=== PATIENT | female | born 1975 | race Caucasian/White ===

== ENCOUNTER 2018-06-22 10:11 | Emergency (ER) | END 2018-06-22 13:09 | disposition home or self-care (01) ==

== ENCOUNTER 2018-12-27 12:48 | Outpatient (CLI) | payer MEDICAID ==
[~2018-12-27] VITALS: Ht 167.6 cm; Wt 80.5 kg
[~2018-12-27 12:48] MED LIST: ACET500C5 PO
[2018-12-27] MEDS ORDERED: PREN-93 PO (13:03)
[2018-12-27] MEDS ORDERED: FERR134T PO (13:03)
[2018-12-27 13:04] VITALS: BP 126/80; PULSE 118; RESP 18; Ht 167.6 cm; Wt 80.5 kg
[2018-12-27] MEDS ORDERED: ACETAMINOPHEN 500 MG TAB PO STA (13:26)
--- NOTE | 2018-12-27 16:10 | PN ---
Triage Information Date/Time Reason for visit: headache Weeks of Gestation 37 weeks /Para Diabetes: gestational Diabetes management: insulin controlled Hypertention: none Objective Vital Signs Date Temp Pulse Resp B/P (MAP) Pulse Ox O2 O2 Flow FiO2 Time Delivery Rate 12/27/18 98.7 118 18 126/80 Room Air 13:04 (95) Heart Rate: 120's Heart Rate Comments Reactive Results/Medications Result Diagram: 12/27/18 1407 12/27/18 1407 Results 24 hrs Laboratory Tests Test 12/27/18 14:07 12/27/18 14:08 White Blood Count 5.9 # Red Blood Count 4.33 Hemoglobin 11.8 L Hematocrit 36.2 L Mean Corpuscular Volume 83.6 # Mean Corpuscular Hemoglobin 27.3 #L Mean Corpuscular Hemoglobin Concent 32.6 Red Cell Distribution Width 14.2 Platelet Count 151 # Mean Platelet Volume 10.9 H Immature Granulocytes % 0.500 H Neutrophils % 83.4 H Lymphocytes % 10.3 L Monocytes % 5.5 Eosinophils % 0.0 Basophils % 0.3 Nucleated Red Blood Cells % 0.0 Immature Granulocytes # 0.030 Neutrophils # 4.9 Lymphocytes # 0.6 L Monocytes # 0.3 Eosinophils # 0.0 Basophils # 0.0 Nucleated Red Blood Cells # 0.0 Sodium Level 136 Potassium Level 4.3 Chloride Level 104 Carbon Dioxide Level 21 Anion Gap 11 Blood Urea Nitrogen 4 L Creatinine 0.46 Est Glomerular Filtrat Rate mL/min > 60 Glucose Level 96 Uric Acid 4.3 Calcium Level 9.1 Total Bilirubin 0.3 Direct Bilirubin 0.00 Indirect Bilirubin 0.3 Aspartate Amino Transf (AST/SGOT) 38 Alanine Aminotransferase (ALT/SGPT) 19 Alkaline Phosphatase 135 H Total Protein 7.8 Albumin 3.9 Globulin 3.90 H Albumin/Globulin Ratio 1.00 Urine Color YELLOW Urine Clarity SLIGHTLY CLOUDY A Urine pH 6.0 Urine Specific Wilson 1.017 Urine Ketones 2+ H Urine Nitrite NEGATIVE Urine Bilirubin NEGATIVE Urine Urobilinogen NEGATIVE Urine Leukocyte Esterase 3+ H Urine Microscopic RBC 4 Urine Microscopic WBC > 182 H Urine Squamous Epithelial Cells MANY A Urine Bacteria FEW A Urine Mucus FEW A Urine Hemoglobin NEGATIVE Urine Glucose NEGATIVE Urine Total Protein NEGATIVE Disposition: Discharge Assessment/Plan After taking Tylenol, patient states her headache resolved. Folllow up in [facility] clinic 12/28/2018. EDDI ULLOA MD Dec 27, 2018 16:10
--- NOTE | 2018-12-27 16:33 | TRIAGE ---
OB Triage Datetime Report Generated by CPN: 12/27/2018 16:32 Datetime: 12/27/2018 16:00 Labor Evaluation Frequency: IRREG Monitor Mode: External Duration (sec)2399: 40-80 Quality: Mild Pattern: Normal: <= 5 Contractions in 10 Minutes Resting Tone [place]: Relaxed Heart Rate FHR Baseline Rate: 135 Monitor Mode: External US Variability: Moderate 6-25 bpm Accelerations: 15X15 Decelerations: None Category: Category I Datetime: 12/27/2018 15:00 Labor Evaluation Frequency: IRREG Monitor Mode: External Duration (sec)2399: 40-70 Quality: Mild Pattern: Normal: <= 5 Contractions in 10 Minutes Resting Tone [place]: Relaxed Heart Rate FHR Baseline Rate: 140 Monitor Mode: External US Variability: Moderate 6-25 bpm Accelerations: 15X15 Decelerations: None Category: Category I Datetime: 12/27/2018 14:00 Labor Evaluation Frequency: IRREG Monitor Mode: External Duration (sec)2399: 50-80 Quality: Mild Pattern: Normal: <= 5 Contractions in 10 Minutes Resting Tone [place]: Relaxed Heart Rate FHR Baseline Rate: 140 Monitor Mode: External US Variability: Moderate 6-25 bpm Accelerations: 15X15 Decelerations: None Datetime: 12/27/2018 13:02 Assessment Type: Triage Maternal Assessment Level of Consciousness: Fully Conscious DTR's/Clonus: DTRs 2+; No Clonus Headache: Denies Blurred Vision: No Respiratory Effort: Unlabored; Regular Rhythm; Equal Expansion Breath Sounds, Left: Clear and Equal Breath Sounds, Right: Clear and Equal Nausea/Vomiting: Denies RUQ Epigastric Pain: Denies Lower Extremities Edema: None Degree: None Upper Extremities Edema: None Degree: None Facial Edema: None Fall Risk Assessment History of Falling: (0) No Secondary Diagnosis: (0) No Ambulatory Aid: (0) Bedrest/Nurse Assist IV Therapy: (0) No Gait: (0) Normal/Bedrest/Immobile Mental Status: (0) Oriented to Own Ability Fall Score: 0 Fall Risk Score Definition: No Risk: No action required Datetime: 12/27/2018 13:00 Time of Arrival: 12/27/2018 12:40 EGA: 37.2 Arrived By: Ambulatory Arrived From: Home Chief Complaint: h/a, back pain, N/V X2 Movement: Present Contractions: Denies/Absent Vaginal Bleeding: None Vaginal Discharge: Denies Recent Sexual Intercouse: Denies Patient Complaints: Back Pain; Nausea; Vomiting Time Provider Notified: 12/27/2018 13:22 Provider Notified: ARTEMIO Initial Plan: NST, tylenol, lab work
== END 2018-12-27 16:20 | disposition home or self-care (01) ==
LOC: L-D 12:48 → OBT 12:48
PROVIDERS: ATTEND Obstetrics & Gynecology
DX: O24.414 Gestational diabetes mellitus in pregnancy, insulin controlled (principal); Z3A.37 37 weeks gestation of pregnancy
CPT/HCPCS: 80053; 81001; 84560; 85025; Z7500; Z7610; G0463

== ENCOUNTER 2019-01-08 08:00 | Inpatient (IN) | payer MEDICAID ==
[~2019-01-08] VITALS: Ht 167.6 cm; Wt 80.4 kg
[~2019-01-08 08:00] MED LIST changes: +FERR134T PO; +PREN-93 PO
[2019-01-08] MEDS ORDERED: LACTATED RINGER'S 1,000 ML IV PRN (08:24)
[2019-01-08] MEDS ORDERED: BUTORPHANOL 2 MG INJ IV PRN (08:30)
[2019-01-08] MEDS ORDERED: BUTORPHANOL 1 MG INJ IV PRN (08:30)
[2019-01-08] MEDS ORDERED: CARBOPROST 250 MCG INJ IM PRN (08:30)
[2019-01-08] MEDS ORDERED: IBUPROFEN 600 MG TAB PO PRN (08:30)
[2019-01-08] MEDS ORDERED: OXYTOCIN 30 UNITS/LR 500 ML IV SCH ×3 (08:30→19:00)
[2019-01-08] MEDS ORDERED: LIDOCAINE 1% (MPF) 30 ML INJ INJ PRN (08:30)
[2019-01-08] MEDS ORDERED: METHYLERGONOVINE 0.2 MG INJ IM PRN (08:30)
[2019-01-08] MEDS ORDERED: MISOPROSTOL 200 MCG TAB PR PRN (08:30)
[2019-01-08] MEDS ORDERED: OXYTOCIN 30 UNITS/LR 500 ML IV PRN (08:30)
[2019-01-08 09:14] VITALS: Ht 167.6 cm; Wt 80.4 kg
[2019-01-08] MEDS: MISOPROSTOL 50 MCG CAPSULE PO SCH ×4 (10:33→21:00)
[2019-01-08] MEDS: LACTATED RINGER'S 1,000 ML IV SCH ×2 (10:34→20:41)
[2019-01-08] MEDS: DEXTROSE 5%-LR 1,000 ML IV SCH ×2 (11:21→19:13)
--- NOTE | 2019-01-08 19:34 | HP ---
Date/Time of Note Date/Time of Note DATE: 01/08/19 TIME: 19:32 OB - History Hx of Present Chief Complaint: induction of labor Estimated Due Date: Jan 15, 2019 : 1 Para: 0 Spontaneous : 0 Therapeutic : 0 Care: Good Care Ultrasounds: Normal mid trimester US Obstetrical Complications: None Medical Complications: Other (Type II DM) Past Family/Social History * Past Medical, Surgical, Family and Obstetric Histories reviewed from chart. GBS Status: Negative OB Admission Exam Physical Exam HEENT: WNL Heart: Rhythm Normal Lungs: Clear, Equal Abdomen: WNL Extremities: Normal Reflexes: Normal Cervical Dilatation: None Effacement: 50% Station: -1 Membranes: Intact Heart Rate: 120's Accelerations: Accelerations Present Decelerations: No Decelerations Varibility: Moderate Last 72 hourBlood Glucose Bedside Glucose - 72 Hours Test 01/08/19 11:10 01/08/19 13:47 01/08/19 16:12 01/08/19 18:01 Bedside 92 95 96 97 Glucose mg/dL (70-220) mg/dL (70-220) mg/dL (70-220) mg/dL (70-220) Last 72 hours Lab Results CBC & BMP 01/08/19 08:55 Liver Function Test 01/08/19 08:55 Alanine Aminotransferase (ALT/SGPT) 16 Albumin 3.8 Alkaline Phosphatase 150 H Aspartate Amino Transf (AST/SGOT) 23 Direct Bilirubin 0.00 Total Protein 7.7 OB Assessment/Plan Reason for admission: induction of labor Plan: Induction Induction Method: per Misoprostol Protocol EDDI ULLOA MD Jan 08, 2019 19:34
--- NOTE | 2019-01-08 22:22 | PREAC ---
Date/Time of Note Date/Time of Note DATE: 01/08/19 TIME: : Anesthesia Eval and Record Evaluation Time Pre-Procedure Interview DATE: 01/08/19 TIME: 22:19 Age 43 Sex female NPO: 8 hrs Preoperative diagnosis IUP Planned procedure L&D Epidural Past Medical History Past Medical History: Includes Cardio: HTN, Dyslipidemia Endo: Diabetes GI: Obesity Surgery & Anesthesia Issues No known issue Meds Anticoagulation: No Beta Marlon within 24 hr: No Reason Beta Marlon not given: Pt. not on B-Marlon Active Scripts Acetaminophen* (Tylophen*) 500 Mg Capsule, 1 CAP PO Q6H PRN for PAIN AND OR E LEVATED TEMP, #30 CAP Prov:ANTHONY MCCLURE PA-C 06/22/18 Reported Medications Ferrous Sulfate (Iron) 134 Mg Tablet, 134 MG PO DAILY, TAB 12/27/18 Vit No.124/Iron/FA ( Vitamin Tablet) 1 Each Tablet, 1 EACH PO DAILY, TAB 12/27/18 Current Medications Lactated Ringer's 1,000 ml @ 125 mls/hr Q8H IV Last administered on 01/08/19at 20:41; Admin Dose 125 MLS/HR; Start 01/08/19 at 08:24 Dextrose/Lactated Ringer's 1,000 ml @ 125 mls/hr Q8H IV Last administered on 01/08/19at 19:13; Admin Dose 125 MLS/HR; Start 01/08/19 at 08:24 Butorphanol Tartrate (Stadol) 1 mg Q2H PRN IV .PAIN; Start 01/08/19 at 08:30 Butorphanol Tartrate (Stadol) 2 mg Q2H PRN IV .PAIN; Start 01/08/19 at 08:30 Lidocaine (Xylocaine 1% (Mpf)) 30 ml ONCE PRN INJ .EPISIOTOMY; Start 01/08/19 at 08:30 Oxytocin/Lactated Ringer's 500 ml @ 500 mls/hr ONCE POST IV ; Start 01/08/19 at 08:30 Oxytocin/Lactated Ringer's 500 ml @ 125 mls/hr POST IV ; Start 01/08/19 at 08:30 Ibuprofen (Motrin) 600 mg ONCE PRN PO .PAIN 1-5; Start 01/08/19 at 08:30 Lactated Ringer's 1,000 ml @ 2,000 mls/hr Q30M PRN IV .ANESTHESIA; Start 01/08/19 at 08:24 Oxytocin/Lactated Ringer's 500 ml @ 0 mls/hr ONCE PRN IV .VAGINAL BLEEDING; Start 01/08/19 at 08:30 Methylergonovine Maleate (Methergine) 0.2 mg ONCE PRN IM .VAGINAL BLEEDING; Start 01/08/19 at 08:30 Carboprost Tromethamine (Hemabate) 250 mcg ONCE PRN IM .VAGINAL BLEEDING; Start 01/08/19 at 08:30 Misoprostol (Cytotec) 1,000 mcg ONCE PRN OK .VAGINAL BLEEDING; Start 01/08/19 at 08:30 Misoprostol (Cytotec 50 Mcg Capsule) 50 mcg Q4 PO Last administered on 01/08/19at 14:36; Admin Dose 50 MCG; Start 01/08/19 at 10:30 Oxytocin/Lactated Ringer's 500 ml @ 0 mls/hr FOR INDUCTION IV Last administered on 01/08/19at 20:40; Admin Dose 1 MLS/HR; Start 01/08/19 at 19:00 Meds reviewed: Yes Allergies Coded Allergies: No Known Allergy (Unverified , 12/27/18) Allergies Reviewed: Yes Labs/Studies Labs Reviewed: Reviewed by anesthesiologist Result Diagram: 01/08/19 0855 01/08/19 0855 Laboratory Tests 01/08/19 08:55 Blood Bank Test 01/08/19 08:55 Antibody Screen NEGATIVE Blood Type A NEGATIVE Rh Immune Globulin Candidate NO test: Positive Studies: ECG Pre-procedure Exam Last vitals BP:128/76, P:88, Spo2:100%, T:98,8 Airway: Adequate mouth opening, Adequate thyromental dist Mallampati: Mallampati II Teeth: Normal Lung: Normal Heart: Normal ASA Physical Status ASA physical status: 3 Emergency: None Planned Anesthetic Neuraxial: Epidural Planned Pain Management Epidural, Parenteral pain med Pre-operative Attestations Prior to commencing anesthesia and surgery, the patient was re-evaluated, there was verification of: *The patient's identity *The results of appropriate recent lab work and preoperative vital signs *The above evaluation not changing prior to induction *Anesthetic plan, risk benefits, alternative and complications discussed with patient/family; questions answered; patient/family understands, accepts and wishes to proceed. MALENA LORENZO MD Jan 08, 2019 22:22
[2019-01-08] MEDS ORDERED: NALOXONE (0.4 MG/ML) INJ IV PRN (22:30)
[2019-01-08] MEDS ORDERED: DIPHENHYDRAMINE 50 MG INJ IV PRN (22:30)
[2019-01-08] MEDS ORDERED: ONDANSETRON 4 MG INJ IV PRN (22:30)
[2019-01-09] MEDS: DEXTROSE 5%-LR 1,000 ML IV SCH (00:24)
[2019-01-09] MEDS: LACTATED RINGER'S 1,000 ML IV SCH ×5 (00:24→21:55)
[2019-01-09] MEDS: MISOPROSTOL 50 MCG CAPSULE PO SCH ×2 (01:00→05:00)
[2019-01-09] MEDS: FENTAnyl 2MCG/ML-ROPIV 0.2% 100 ML BAG EPI SCH ×3 (01:35→21:19)
--- NOTE | 2019-01-09 13:17 | PAC ---
Date/Time of Note Date/Time of Note DATE: 01/09/19 TIME: 13:16 Post-Anesthesia Notes Post-Anesthesia Note Activity: WNL Respiratory function: WNL Cardiovascular function: WNL Mental status: Baseline Pain reasonably controlled: Yes Hydration appropriate: Yes Nausea/Vomiting absent: Yes GRACE MORALES Jan 09, 2019 13:16
[2019-01-09] MEDS ORDERED: PIPER-TAZO 3.375 GM IV (PMX) 100 ML IVPB ONE (21:00)
--- NOTE | 2019-01-09 21:49 | LDN ---
Date/Time of Note Date/Time of Note DATE: 01/09/19 TIME: 21:43 Delivery Summary over intact perineum. Placenta delivered spontaneously. Uterine atony noted. Hemabate and Cytotec given Using large curette, sharp curettage performed. Bakri balloon placed and 470 ml of NS infused. Placenta Delivered: Spontaneously Meconium: none Episiotomy: No Laceration repair: Second degree perineal laceration repaired with 3-0 Vicryl and 3-0 chromic. Anesthesia type: Epidural Estimated blood loss: 1200 Sponge & Needle done & correct: Yes All needle counts correct: Yes Any foreign bodies felt in the: No Infant Delivery Information Sex Sex: male Apgars 1 Minute: 9 5 Minute: 9 Suctioning Nose & mouth suctioned at hilary: No Delee suction performed: No Umbilical Cord Umbilical cord with: 3 Vessels Cord presentations: no nuchal cord Cord Blood was obtained: Yes Mother & Baby Disposition Disposition Mom & Baby to Maternity; Good: Yes EDDI ULLOA MD Jan 09, 2019 21:49
[2019-01-09] MEDS ORDERED: WITCH HAZEL/GLYCERIN PAD PR PRN (23:30)
[2019-01-09] MEDS ORDERED: ACETAMINOPHEN 325 MG TAB PO PRN (23:30)
[2019-01-09] MEDS ORDERED: CARBOPROST 250 MCG INJ IM PRN (23:30)
[2019-01-09] MEDS ORDERED: OXYTOCIN 30 UNITS/LR 500 ML IV PRN (23:30)
[2019-01-09] MEDS ORDERED: BENZOCAINE 20% 56 ML SPRAY TOP PRN (23:30)
[2019-01-09] MEDS ORDERED: DIBUCAINE 1% 30 GM OINT TOP PRN (23:30)
[2019-01-09] MEDS ORDERED: MISOPROSTOL 200 MCG TAB PR PRN (23:30)
[2019-01-09] MEDS ORDERED: HYDROCODONE/APAP (5/325) TAB PO PRN (23:30)
[2019-01-10] MEDS ORDERED: PIPER-TAZO 3.375 GM IV (PMX) 100 ML IVPB SCH
[2019-01-10] MEDS: PIPER-TAZO 3.375 GM IV (PMX) 100 ML IVPB SCH ×3 (00:50→11:55)
[2019-01-10 03:56] VITALS: BP 97/54; PULSE 97; RESP 18
[2019-01-10 04:00] VITALS: BP 95/52; PULSE 96; RESP 18
--- NOTE | 2019-01-10 04:09 | PAC ---
Date/Time of Note Date/Time of Note DATE: 01/10/19 TIME: 04:09 Post-Anesthesia Notes Post-Anesthesia Note Last documented vital signs Vital Signs Date Temp Pulse Resp B/P (MAP) Pulse Ox O2 O2 Flow FiO2 Time Delivery Rate 01/10/19 96 18 95/52 (66) Room Air 04:00 01/10/19 98.3 98 03:56 Activity: WNL Respiratory function: WNL Cardiovascular function: WNL Mental status: Baseline Pain reasonably controlled: Yes Hydration appropriate: Yes Nausea/Vomiting absent: Yes GRACE MORALES Jan 10, 2019 04:09
[2019-01-10] MEDS: LACTATED RINGER'S 1,000 ML IV* SCH ×4 (04:40→23:08)
[2019-01-10] MEDS: IBUPROFEN 600 MG TAB PO SCH ×4 (05:42→18:13)
[2019-01-10] MEDS: FENTAnyl 2MCG/ML-ROPIV 0.2% 100 ML BAG EPI SCH (05:44)
[2019-01-10 07:30] VITALS: BP 97/55; PULSE 93; RESP 18
[2019-01-10] MEDS: SENNA/DOCUSATE NA (8.6MG/50MG) TAB PO SCH ×2 (09:00→21:35)
[2019-01-10 12:53] VITALS: BP 118/57; PULSE 101; RESP 19
--- NOTE | 2019-01-10 13:26 | QN ---
Documentation Comment No complaint Afebrile VSS Lochia moderate Hgb 7 Stable D/C Bakri Monitor lochia Fe supplement EDDI ULLOA MD Jan 10, 2019 13:26
[2019-01-10 15:15] VITALS: BP 125/61; PULSE 93; RESP 20
[2019-01-10 21:15] VITALS: BP 131/81; PULSE 78; RESP 18
[2019-01-10] MEDS: FERROUS SULFATE (EC) 325 MG TAB PO SCH (21:35)
[2019-01-11] MEDS: IBUPROFEN 600 MG TAB PO SCH ×5 (03:02→17:49)
[2019-01-11 03:15] VITALS: BP 136/80; PULSE 75; RESP 18
[2019-01-11] MEDS: LACTATED RINGER'S 1,000 ML IV* SCH ×3 (07:08→23:08)
[2019-01-11 08:10] VITALS: BP 136/74; PULSE 72; RESP 18
[2019-01-11] MEDS ORDERED: DIPHTH/TET/ACEL PERTUSS (ADULT) 0.5 ML VIAL IM* ONE (09:00)
--- NOTE | 2019-01-11 10:08 | QN ---
Documentation Comment No complaint Afebrile VSS Fundus firm Lochia scant Hgb 7.1 Stable Continue with Fe supplement Endocrinology consult EDDI ULLOA MD Jan 11, 2019 10:08
[2019-01-11] MEDS: FERROUS SULFATE (EC) 325 MG TAB PO SCH ×3 (12:09→21:24)
[2019-01-11] MEDS: SENNA/DOCUSATE NA (8.6MG/50MG) TAB PO SCH ×2 (12:09→21:25)
--- NOTE | 2019-01-11 14:25 | CONS ---
Assessment/Plan Assessment/Plan Problems: (1) Gestational diabetes mellitus Status: Chronic Comment: She is now . We will follow her closely but at this time I would not initiate medication therapy Qualifiers: Qualified Codes: O24.414 - Gestational diabetes mellitus in , insulin controlled (2) Insulin resistance syndrome Status: Chronic Comment: Counseled her carefully and the natural history of insulin resistance syndrome and is genetics. Specifically of talked to her about the utility of weight loss and exercise and protecting her interest for becoming a full diabetic. Follow her along she needs to be checked 2 months for sugar metabolism Consultation Date/Type/Reason Admit Date/Time Jan 08, 2019 at 08:15 Date of Consultation: Jan 11, 2019 Type of Consult Endocrinology Reason for Consultation Gestational diabetes with history of prediabetes pre- Requesting Provider: EDDI ULLOA MD Date/Time of Note DATE: 01/11/19 TIME: 14:21 Hx of Present Illness Charming 43-year-old female who reports that prior to she had been told of prediabetes but had not been placed on any specific medications. When she became she was placed on insulin therapy and maintained throughout with acceptable glycemic control. She is now after spontaneous vaginal delivery. No complications to the child Constitutional: no complaints Eyes: no complaints ENT: no complaints Respiratory: no complaints Cardiovascular: no complaints Gastrointestinal: no complaints Genitourinary: no complaints Musculoskeletal: no complaints Skin: no complaints Neurologic: no complaints Endocrine: no complaints Past Medical History Medical History: other (Insulin resistance syndrome with impaired glucose tolerance; gestational diabetes) Home Meds Active Scripts Acetaminophen* (Tylophen*) 500 Mg Capsule, 1 CAP PO Q6H PRN for PAIN AND OR ELEVATED TEMP, #30 CAP Prov:ANTHONY MCCLURE PA-C 06/22/18 Reported Medications Ferrous Sulfate (Iron) 134 Mg Tablet, 134 MG PO DAILY, TAB 12/27/18 Vit No.124/Iron/FA ( Vitamin Tablet) 1 Each Tablet, 1 EACH PO DAILY, TAB 12/27/18 Medications Current Medications Fentanyl/ Ropivacaine 100 ml EPIDURAL INFUSION EPI Last administered on at 05:44; Admin Dose 100 ML; Start 01/08/19 at 22:30 Lactated Ringer's 1,000 ml @ 125 mls/hr Q8H IV* Last administered on 01/10/19at 13:51; Admin Dose 125 MLS/HR; Start 01/09/19 at 23:08 Ibuprofen (Motrin) 600 mg Q6 PO Last administered on 01/11/19at 12:09; Admin Dose 600 MG; Start 01/10/19 at 00:00 Acetaminophen (Tylenol Tab) 650 mg Q4H PRN PO .PAIN 1-5; Start 01/09/19 at 23:30 Acetaminophen/ Hydrocodone Bitart ([place] (5/325)) 1 tab Q4H PRN PO .PAIN 1-5; Start 01/09/19 at 23:30 Senna/Docusate Sodium (Senokot-S) 1 tab BID PO Last administered on 01/11/19at 12:09; Admin Dose 1 TAB; Start 01/10/19 at 09:00 Witch [place]/ Glycerin (Tucks Pads) 1 pad BEDSIDE MEDICATION PRN TN .HEMORRHOID/EPISIOTOMY PAIN; Start 01/09/19 at 23:30 Benzocaine (Dermoplast Criders) 1 spray BEDSIDE MEDICATION PRN TOP .HEMMORHOID/EPISIOTOMY PAIN; Start 01/09/19 at 23:30 Dibucaine (Nupercainal) 1 applic BEDSIDE MEDICATION PRN TOP .HEMMORHOID/EPISIOTOMY; Start 01/09/19 at 23:30 Oxytocin/Lactated Ringer's 500 ml @ 0 mls/hr ONCE PRN IV .VAGINAL BLEEDING; Start 01/09/19 at 23:30 Carboprost Tromethamine (Hemabate) 250 mcg ONCE PRN IM .VAGINAL BLEEDING; Start 01/09/19 at 23:30 Misoprostol (Cytotec) 1,000 mcg ONCE PRN TN .VAGINAL BLEEDING; Start 01/09/19 at 23:30 Ferrous Sulfate (Ferrous Sulfate (Ec)) 325 mg TID PO Last administered on 01/11/19at 12:10; Admin Dose 325 MG; Start 01/10/19 at 21:00 Influenza Virus Vaccine Quadrival (Fluzone) 0.5 ml ONCE ONCE IM* ; Start 01/12/19 at 10:00; Stop 01/12/19 at 10:01 Allergies: Coded Allergies: No Known Allergy (Unverified , 12/27/18) Past Surgical History Past Surgical Hx: no surgical history Family History Significant Family History: diabetes Social History Alcohol Use: none Smoking Status: Never smoker Drug Use: none Exam/Review of Systems Exam Vitals Vital Signs Date Temp Pulse Resp B/P (MAP) Pulse Ox O2 O2 Flow FiO2 Time Delivery Rate 01/11/19 97.5 72 18 136/74 Room Air 08:10 (94) 01/10/19 98 03:56 Intake and Output 01/10/19 01/10/19 01/11/19 1515:00 23:00 07:00 IntakeIntake Total 4700 ml OutputOutput Total 800 ml 500 ml BalanceBalance -800 ml 4200 ml Constitutional: alert, oriented Head: normocephalic, atraumatic Neck: supple, non-tender Respiratory: clear to auscultation, normal air movement Cardiovascular: regular rate and rhythm, nl pulses Gastrointestinal: soft, nl liver, spleen, non-tender Results Result Diagram: 01/11/19 0809 01/08/19 0855 Results 24hrs Laboratory Tests Test 01/10/19 16:11 01/11/19 06:29 01/11/19 07:53 01/11/19 08:09 Bedside Glucose 143 128 Lab Scanned Report REFERENCE LAB White Blood Count 22.0 #H Red Blood Count 2.52 L Hemoglobin 7.1 L Hematocrit 20.6 L Mean Corpuscular 81.7 L Volume Mean Corpuscular 28.2 L Hemoglobin Mean Corpuscular 34.5 Hemoglobin Concent Red Cell 14.6 H Distribution Width Platelet Count 198 # Mean Platelet 11.4 H Volume Immature 3.900 H Granulocytes % Neutrophils % 86.0 H Segmented 85 H Neutrophils % (Manual) Band Neutrophils % 7 H (Manual) Lymphocytes % 6.8 L Lymphocytes % 6 L (Manual) Monocytes % 3.0 Monocytes % 2 (Manual) Eosinophils % 0.0 Basophils % 0.3 Nucleated Red 0.0 Blood Cells % Immature 0.860 H Granulocytes # Neutrophils # 18.9 H Neutrophils # 19.0 H (Manual) Band Neutrophils # 1.5 H Lymphocytes 1.3 (Manual) Lymphocytes # 1.5 Monocytes # 0.7 Monocytes # 0.4 (Manual) Eosinophils # 0.0 Basophils # 0.1 Nucleated Red 0.0 Blood Cells # Platelet Estimate NORMAL Giant Platelets 1 H Polychromasia 3+ Anisocytosis 3+ Microcytosis 3+ Test 01/11/19 12:00 Bedside Glucose 120 Medications Medication Current Medications Fentanyl/ Ropivacaine 100 ml EPIDURAL INFUSION EPI Last administered on 01/10/19at 05:44; Admin Dose 100 ML; Start 01/08/19 at 22:30 Lactated Ringer's 1,000 ml @ 125 mls/hr Q8H IV* Last administered on 01/10/19at 13:51; Admin Dose 125 MLS/HR; Start 01/09/19 at 23:08 Ibuprofen (Motrin) 600 mg Q6 PO Last administered on 01/11/19at 12:09; Admin Dose 600 MG; Start 01/10/19 at 00:00 Acetaminophen (Tylenol Tab) 650 mg Q4H PRN PO .PAIN 1-5; Start 01/09/19 at 23:30 Acetaminophen/ Hydrocodone Bitart ([place] (5/325)) 1 tab Q4H PRN PO .PAIN 1-5; Start 01/09/19 at 23:30 Senna/Docusate Sodium (Senokot-S) 1 tab BID PO Last administered on 01/11/19at 12:09; Admin Dose 1 TAB; Start 01/10/19 at 09:00 Witch [place]/ Glycerin (Tucks Pads) 1 pad BEDSIDE MEDICATION PRN [place] .HEMORRHOID/EPISIOTOMY PAIN; Start 01/09/19 at 23:30 Benzocaine (Dermoplast Criders) 1 spray BEDSIDE MEDICATION PRN TOP .HEMMORHOID/EPISIOTOMY PAIN; Start 01/09/19 at 23:30 Dibucaine (Nupercainal) 1 applic BEDSIDE MEDICATION PRN TOP .HEMMORHOID/EPISIOTOMY; Start 01/09/19 at 23:30 Oxytocin/Lactated Ringer's 500 ml @ 0 mls/hr ONCE PRN IV .VAGINAL BLEEDING; Start 01/09/19 at 23:30 Carboprost Tromethamine (Hemabate) 250 mcg ONCE PRN IM .VAGINAL BLEEDING; Start 01/09/19 at 23:30 Misoprostol (Cytotec) 1,000 mcg ONCE PRN TN .VAGINAL BLEEDING; Start 01/09/19 at 23:30 Ferrous Sulfate (Ferrous Sulfate (Ec)) 325 mg TID PO Last administered on 01/11/19at 12:10; Admin Dose 325 MG; Start 01/10/19 at 21:00 Influenza Virus Vaccine Quadrival (Fluzone) 0.5 ml ONCE ONCE IM* ; Start 01/12/19 at 10:00; Stop 01/12/19 at 10:01 PATRICK MCCONNELL MD Jan 11, 2019 14:25
[2019-01-11] MEDS ORDERED: GLUCOSE GEL 15 GRAM TUBE PO PRN ×2 (14:30)
[2019-01-11] MEDS ORDERED: DEXTROSE 50% 50 ML SYRINGE IV PRN ×2 (14:30)
[2019-01-11] MEDS ORDERED: GLUCAGON 1 MG INJ IM PRN (14:30)
[2019-01-11] MEDS ORDERED: GLUCOSE GEL 15 GRAM TUBE BUCCAL PRN (14:30)
[2019-01-11 20:00] VITALS: BP 128/74; PULSE 72; RESP 20
[2019-01-12] MEDS: IBUPROFEN 600 MG TAB PO SCH ×5 (00:14→23:09)
[2019-01-12] MEDS: ACCU-CHEK XX SCH ×6 (02:00→20:05)
[2019-01-12 03:20] VITALS: BP 126/71; PULSE 76; RESP 20
[2019-01-12 08:00] VITALS: BP 137/81; PULSE 65; RESP 20
[2019-01-12] MEDS: INSULIN ASPART [NOVOLOG] 3 ML PEN SC SCH ×4 (08:05→21:00)
--- NOTE | 2019-01-12 09:08 | CONS ---
Assessment/Plan Assessment/Plan Problems: (1) Insulin resistance syndrome Status: Chronic Comment: To need to monitor sugars. Anticipate that she may not need any treatment but if she does it would probably be with metformin 500 mg p.o. twice daily (2) Iron deficiency anemia Status: Chronic Comment: Is a significant iron deficiency anemia by blood testing. She is on oral iron however this will take some time to re-replete her levels. I am going to go ahead and give her IV iron to help speed the process. Dr. Ulloa will evaluate her for any other evaluation Qualifiers: Iron deficiency anemia type: unspecified iron deficiency Qualified Codes: D50.9 - Iron deficiency anemia, unspecified Consultation Date/Type/Reason Admit Date/Time Jan 08, 2019 at 08:15 Initial Consult Date 01/11/19 Type of Consult Endocrinology Reason for Consultation Insulin resistance syndrome with history of gestational diabetes; iron deficiency anemia with significant anemia Requesting Provider: EDDI ULLOA MD Date/Time of Note DATE: 01/12/19 TIME: 09:05 24 HR Interval Summary Free Text/Dictation Patient wants to know if she can go home Constitutional: no complaints Detailed Summary Endocrine: no complaints Exam/Review of Systems Exam Vitals Vital Signs Date Temp Pulse Resp B/P (MAP) Pulse Ox O2 O2 Flow FiO2 Time Delivery Rate 01/12/19 97.9 65 20 137/81 Room Air 08:00 (99) 01/10/19 98 03:56 Constitutional: alert, oriented Respiratory: clear to auscultation, normal air movement Cardiovascular: regular rate and rhythm, nl pulses Gastrointestinal: nl liver, spleen, non-tender, other (Small firm area in the pelvic area) Results Result Diagram: 01/12/19 0645 01/08/19 0855 Results 24hrs Laboratory Tests Test 01/11/19 12:00 01/11/19 13:30 01/11/19 15:23 01/11/19 17:47 Bedside Glucose 120 116 Urine Color YELLOW Urine Clarity SLIGHTLY CLOUDY A Urine pH 6.0 Urine Specific 1.012 [place] Urine Ketones NEGATIVE Urine Nitrite NEGATIVE Urine Bilirubin NEGATIVE Urine NEGATIVE Urobilinogen Urine Leukocyte 3+ H Esterase Urine Microscopic 66 H RBC Urine Microscopic 68 H WBC Urine Squamous FEW Epithelial Cells Urine Bacteria FEW A Urine Hemoglobin 3+ H Urine Glucose NEGATIVE Urine Total NEGATIVE Protein Iron Level 24 L Total Iron 318 Binding Capacity Percent Iron 8 L Saturation Ferritin 85.8 Thyroid 2.950 Stimulating Hormone (TSH) Hepatitis C NEGATIVE Antibody Test 01/11/19 22:06 01/12/19 06:45 01/12/19 08:08 Bedside Glucose 134 107 White Blood Count 15.3 #H Red Blood Count 2.18 L Hemoglobin 6.0 *L Hematocrit 17.9 L Mean Corpuscular 82.1 Volume Mean Corpuscular 27.5 L Hemoglobin Mean Corpuscular 33.5 Hemoglobin Concen t Red Cell 14.5 Distribution Width Platelet Count 177 Mean Platelet 11.1 H Volume Immature 2.400 H Granulocytes % Neutrophils % 83.9 H Lymphocytes % 9.1 L Monocytes % 4.2 Eosinophils % 0.2 Basophils % 0.2 Nucleated Red 0.0 Blood Cells % Immature 0.370 H Granulocytes # Neutrophils # 12.8 H Lymphocytes # 1.4 Monocytes # 0.6 Eosinophils # 0.0 Basophils # 0.0 Nucleated Red 0.0 Blood Cells # Medications Medication Current Medications Ibuprofen (Motrin) 600 mg Q6 PO Last administered on 01/12/19at 05:17; Admin Dose 600 MG; Start 01/10/19 at 00:00 Acetaminophen (Tylenol Tab) 650 mg Q4H PRN PO .PAIN 1-5; Start 01/09/19 at 23:30 Acetaminophen/ Hydrocodone Bitart ([place] (5/325)) 1 tab Q4H PRN PO .PAIN 1-5; Start 01/09/19 at 23:30 Senna/Docusate Sodium (Senokot-S) 1 tab BID PO Last administered on 01/11/19at 21:25; Admin Dose 1 TAB; Start 01/10/19 at 09:00 Witch Ryanne/ Glycerin (Tucks Pads) 1 pad BEDSIDE MEDICATION PRN [place] .HEMORRHOID/EPISIOTOMY PAIN; Start 01/09/19 at 23:30 Benzocaine (Dermoplast [place]) 1 spray BEDSIDE MEDICATION PRN [place] .HEMMORHOID/EPISIOTOMY PAIN; Start 01/09/19 at 23:30 Dibucaine (Nupercainal) 1 applic BEDSIDE MEDICATION PRN [place] .HEMMORHOID/EPISIOTOMY; Start 01/09/19 at 23:30 Oxytocin/Lactated Ringer's 500 ml @ 0 mls/hr ONCE PRN IV .VAGINAL BLEEDING; Start 01/09/19 at 23:30 Carboprost Tromethamine (Hemabate) 250 mcg ONCE PRN IM .VAGINAL BLEEDING; Start 01/09/19 at 23:30 Misoprostol (Cytotec) 1,000 mcg ONCE PRN [place] .VAGINAL BLEEDING; Start 01/09/19 at 23:30 Ferrous Sulfate (Ferrous Sulfate (Ec)) 325 mg TID PO Last administered on 01/11/19at 21:24; Admin Dose 325 MG; Start 01/10/19 at 21:00 Influenza Virus Vaccine Quadrival (Fluzone) 0.5 ml ONCE ONCE IM* ; Start 9 at 10:00; Stop 01/12/19 at 10:01 Diagnostic Test (Pha) (Accu-Chek) 1 ea 02 XX ; Start 01/12/19 at 02:00 Insulin Aspart (Novolog Insulin Pen) NOVOLOG *MILD* ALGORITHM WITH MEALS BEDTIME SC ; Start 01/11/19 at 18:05 Miscellaneous Information 1 ea NOTE XX ; Start 01/11/19 at 14:30 Glucose (Glutose) 22.5 gm Q15M PRN PO DECREASED GLUCOSE; Start 01/11/19 at 14:30 Dextrose (D50w Syringe) 25 ml Q15M PRN IV DECREASED GLUCOSE; Start 01/11/19 at 14:30 Dextrose (D50w Syringe) 50 ml Q15M PRN IV DECREASED GLUCOSE; Start 01/11/19 at 14:30 Glucagon (Glucagen) 1 mg Q15M PRN IM DECREASED GLUCOSE; Start 01/11/19 at 14:30 Glucose (Glutose) 15 gm Q15M PRN BUCCAL DECREASED GLUCOSE; Start 01/11/19 at 14:30 Ferric Sodium Gluconate Complex 125 mg/Sodium Chloride 100 ml @ 100 mls/hr ONCE ONCE IVPB ; Start 01/12/19 at 09:00; Stop 01/12/19 at 09:59; Status UNV Ferric Sodium Gluconate Complex 125 mg/Sodium Chloride 100 ml @ 100 mls/hr DAILY@1300 IVPB ; Start 01/12/19 at 13:00; Stop 01/14/19 at 13:59; Status UNV Diagnostic Test (Pha) (Accu-Chek) 1 ea 2 HOURS AFTER MEALS XX ; Start 01/12/19 at 10:05; Status UNV Diagnostic Test (Pha) (Accu-Chek) 1 ea AC MEALS XX ; Start 01/12/19 at 11:20; Status UNV PATRICK MCCONNELL MD Jan 12, 2019 09:08
[2019-01-12] MEDS: SENNA/DOCUSATE NA (8.6MG/50MG) TAB PO SCH ×2 (09:39→21:00)
[2019-01-12] MEDS: FERROUS SULFATE (EC) 325 MG TAB PO SCH ×3 (09:39→21:00)
[2019-01-12] MEDS ORDERED: SOD FERRIC GLUC COMPLX 125 MG in SOD CHLORIDE 0.9% 100 ML IVPB ONE (10:00)
[2019-01-12] MEDS: SOD FERRIC GLUC COMPLX 125 MG in SOD CHLORIDE 0.9% 100 ML IVPB SCH (13:29)
[2019-01-12 15:50] VITALS: BP 138/79; PULSE 77; RESP 20
--- NOTE | 2019-01-12 16:45 | QN ---
Documentation Comment No complaint Afebrile VSS Fundus firm lochia scant Hgb 6.2 Continue with IV iron Repeat CBC in AM EDDI ULLOA MD Jan 12, 2019 16:45
[2019-01-12 20:00] VITALS: BP 138/62; PULSE 76; RESP 20
[2019-01-12] MEDS: FOLIC ACID 1 MG TAB PO SCH (21:00)
[2019-01-13] VITALS (11 sets, daily range): BP systolic 104–192; BP diastolic 59–96; PULSE 72–85; RESP 18–20
[2019-01-13] MEDS: IBUPROFEN 600 MG TAB PO SCH ×3 (05:28→18:01)
[2019-01-13] MEDS: INSULIN ASPART [NOVOLOG] 3 ML PEN SC SCH ×4 (08:05→21:00)
--- NOTE | 2019-01-13 08:44 | CONS ---
Assessment/Plan Assessment/Plan Problems: (1) Insulin resistance syndrome Status: Chronic Comment: Blood sugars are stable at this time in a controlled setting with a controlled diet. Continue on observational basis without pharmaceutical intervention (2) Iron deficiency anemia Status: Chronic Comment: Continue with iron replacement. Discharge as per primary team Qualifiers: Iron deficiency anemia type: unspecified iron deficiency Qualified Codes: D50.9 - Iron deficiency anemia, unspecified (3) Chorioamnionitis, delivered, current hospitalization Status: Acute Comment: Cultures are positive. Management as per primary team Consultation Date/Type/Reason Admit Date/Time Jan 08, 2019 at 08:15 Initial Consult Date 01/11/19 Type of Consult Endocrinology Reason for Consultation Insulin resistance syndrome with gestational diabetes now ; severe iron deficiency anemia; chorioamnionitis with strep on cultures Requesting Provider: EDDI ULLOA MD Date/Time of Note DATE: 01/13/19 TIME: 08:43 24 HR Interval Summary Free Text/Dictation Patient reports she is feeling better. Constitutional: no complaints (Eyes fevers chills or sweats) Detailed Summary Endocrine: no complaints Exam/Review of Systems Exam Vitals Vital Signs Date Temp Pulse Resp B/P (MAP) Pulse Ox O2 O2 Flow FiO2 Time Delivery Rate 01/13/19 98.1 76 20 104/59 Room Air 04:50 (74) 01/10/19 98 03:56 Intake and Output 01/12/19 01/12/19 01/13/19 1515:00 23:00 07:00 IntakeIntake Total 200 ml BalanceBalance 200 ml Exam Ambulatory Constitutional: alert, oriented Respiratory: clear to auscultation, normal air movement Cardiovascular: regular rate and rhythm, nl pulses Results Result Diagram: 01/13/19 0529 01/13/19 0529 Results 24hrs Laboratory Tests Test 01/12/19 11:12 01/12/19 12:27 01/12/19 13:37 01/12/19 14:30 Bedside Glucose 100 97 111 White Blood Count 16.7 H Red Blood Count 2.25 L Hemoglobin 6.2 *L Hematocrit 18.4 L Mean Corpuscular 81.8 L Volume Mean Corpuscular 27.6 L Hemoglobin Mean Corpuscular 33.7 Hemoglobin Concent Red Cell 14.5 Distribution Width Platelet Count 215 # Mean Platelet Volume 10.8 H Immature 2.400 H Granulocytes % Neutrophils % 85.1 H Lymphocytes % 8.6 L Monocytes % 3.5 Eosinophils % 0.2 Basophils % 0.2 Nucleated Red Blood 0.1 H Cells % Immature 0.400 H Granulocytes # Neutrophils # 14.2 H Lymphocytes # 1.4 Monocytes # 0.6 Eosinophils # 0.0 Basophils # 0.0 Nucleated Red Blood 0.0 Cells # Test 01/12/19 17:52 01/12/19 21:40 01/13/19 05:29 Bedside Glucose 99 107 White Blood Count 12.9 #H Red Blood Count 2.15 L Hemoglobin 6.0 *L Hematocrit 17.9 L Mean Corpuscular 83.3 Volume Mean Corpuscular 27.9 L Hemoglobin Mean Corpuscular 33.5 Hemoglobin Concent Red Cell 14.2 Distribution Width Platelet Count 199 Mean Platelet Volume 10.9 H Immature 4.000 H Granulocytes % Neutrophils % Segmented 77 Neutrophils % (Manual) Band Neutrophils % 4 (Manual) Lymphocytes % Lymphocytes % 16 (Manual) Monocytes % Monocytes % (Manual) 2 Eosinophils % Basophils % Promyelocytes % 1 H (Manual) Nucleated Red Blood 2 H Cells % Immature 0.510 H Granulocytes # Neutrophils # Neutrophils # 10.0 H (Manual) Band Neutrophils # 0.5 Lymphocytes (Manual) 2.0 Lymphocytes # Monocytes # Monocytes # (Manual) 0.2 L Eosinophils # Basophils # Promyelocytes # 0.1 H Nucleated Red Blood Cells # Platelet Estimate NORMAL Polychromasia 3+ Poikilocytosis 1+ Anisocytosis 3+ Microcytosis 3+ Sodium Level 139 Potassium Level 3.2 L Chloride Level 109 Carbon Dioxide Level 26 Anion Gap 4 L Blood Urea Nitrogen 9 Creatinine 0.47 Est Glomerular > 60 Filtrat Rate mL/min Glucose Level 83 Calcium Level 8.2 L Medications Medication Current Medications Ibuprofen (Motrin) 600 mg Q6 PO Last administered on 01/13/19at 05:28; Admin Dose 600 MG; Start 01/10/19 at 00:00 Acetaminophen (Tylenol Tab) 650 mg Q4H PRN PO .PAIN 1-5; Start 01/09/19 at 23:30 Acetaminophen/ Hydrocodone Bitart ([place] (5/325)) 1 tab Q4H PRN PO .PAIN 1-5; Start 01/09/19 at 23:30 Senna/Docusate Sodium (Senokot-S) 1 tab BID PO Last administered on 01/12/19at 21:00; Admin Dose 1 TAB; Start 01/10/19 at 09:00 Witch Ryanne/ Glycerin (Tucks Pads) 1 pad BEDSIDE MEDICATION PRN [place] .HEMORRHOID/EPISIOTOMY PAIN; Start 01/09/19 at 23:30 Benzocaine (Dermoplast [place]) 1 spray BEDSIDE MEDICATION PRN TOP .HEMMORHOID/EPISIOTOMY PAIN; Start 01/09/19 at 23:30 Dibucaine (Nupercainal) 1 applic BEDSIDE MEDICATION PRN TOP .HE MMORHOID/EPISIOTOMY; Start 01/09/19 at 23:30 Oxytocin/Lactated Ringer's 500 ml @ 0 mls/hr ONCE PRN IV .VAGINAL BLEEDING; Start 01/09/19 at 23:30 Carboprost Tromethamine (Hemabate) 250 mcg ONCE PRN IM .VAGINAL BLEEDING; Start 01/09/19 at 23:30 Misoprostol (Cytotec) 1,000 mcg ONCE PRN [place] .VAGINAL BLEEDING; Start 01/09/19 at 23:30 Ferrous Sulfate (Ferrous Sulfate (Ec)) 325 mg TID PO Last administered on 01/12/19at 21:00; Admin Dose 325 MG; Start 01/10/19 at 21:00 Diagnostic Test (Pha) (Accu-Chek) 1 ea 02 XX ; Start 01/12/19 at 02:00 Insulin Aspart (Novolog Insulin Pen) NOVOLOG *MILD* ALGORITHM WITH MEALS BEDTIME SC ; Start 01/11/19 at 18:05 Miscellaneous Information 1 ea NOTE XX ; Start 01/11/19 at 14:30 Glucose (Glutose) 22.5 gm Q15M PRN PO DECREASED GLUCOSE; Start 01/11/19 at 14:30 Dextrose (D50w Syringe) 25 ml Q15M PRN IV DECREASED GLUCOSE; Start 01/11/19 at 14:30 Dextrose (D50w Syringe) 50 ml Q15M PRN IV DECREASED GLUCOSE; Start 01/11/19 at 14:30 Glucagon (Glucagen) 1 mg Q15M PRN IM DECREASED GLUCOSE; Start 01/11/19 at 14:30 Glucose (Glutose) 15 gm Q15M PRN BUCCAL DECREASED GLUCOSE; Start 01/11/19 at 14:30 Diagnostic Test (Pha) (Accu-Chek) 1 ea 2 HOURS AFTER MEALS XX Last administered on 01/12/19at 14:48; Admin Dose 1 EA; Start 01/12/19 at 10:05 Diagnostic Test (Pha) (Accu-Chek) 1 ea AC MEALS XX Last administered on 01/12/19at 17:59; Admin Dose 1 EA; Start 01/12/19 at 11:20 Ferric Sodium Gluconate Complex 125 mg/Sodium Chloride 110 ml @ 100 mls/hr DAILY@1300 IVPB Last administered on 01/12/19at 13:29; Admin Dose 100 MLS/HR; Start 01/12/19 at 13:00; Stop 01/14/19 at 13:59 Folic Acid (Folic Acid) 1 mg DAILY PO Last administered on 01/12/19at 21:00; Admin Dose 1 MG; Start 01/12/19 at 17:30 Ferric Sodium Gluconate Complex 125 mg/Sodium Chloride 100 ml @ 100 mls/hr ONCE ONCE IVPB ; Start 01/13/19 at 09:00; Stop 01/13/19 at 09:59; Status UNV Potassium Chloride (Klor-Con 20) 40 meq Q4H PO ; Start 01/13/19 at 09:00; Stop 01/13/19 at 16:00; Status UNV PATRICK MCCONNELL MD Jan 13, 2019 08:44
[2019-01-13] MEDS: ACCU-CHEK XX SCH ×7 (08:52→20:05)
[2019-01-13] MEDS: SENNA/DOCUSATE NA (8.6MG/50MG) TAB PO SCH ×2 (09:17→20:35)
[2019-01-13] MEDS: FOLIC ACID 1 MG TAB PO SCH (09:18)
[2019-01-13] MEDS: FERROUS SULFATE (EC) 325 MG TAB PO SCH ×3 (09:18→20:35)
[2019-01-13] MEDS ORDERED: SOD FERRIC GLUC COMPLX 125 MG in SOD CHLORIDE 0.9% 100 ML IVPB ONE (10:00)
[2019-01-13] MEDS: POTASSIUM CHLORIDE (SR) 20 MEQ TAB PO SCH ×2 (11:03→14:58)
[2019-01-13] MEDS: SOD FERRIC GLUC COMPLX 125 MG in SOD CHLORIDE 0.9% 100 ML IVPB SCH (13:00)
[2019-01-13] MEDS ORDERED: SOD FERRIC GLUC COMPLX 125 MG in SOD CHLORIDE 0.9% 100 ML IVPB SCH (13:00)
--- NOTE | 2019-01-13 17:45 | QN ---
Documentation Comment No complaint Afebrile VSS Fundus firm Hgb 6 Patient counseled reblood transfusion. Risks, benefits and alternatives were explained tot the p;atient who stated she understood and gave informed consent for blood transfusion Will transfuse one unit of RBC. EDDI ULLOA MD Jan 13, 2019 17:44
[2019-01-14] VITALS (24 sets, daily range): BP systolic 138–184; BP diastolic 67–92; PULSE 80–109; RESP 16–20
[2019-01-14] MEDS ORDERED: MAGNESIUM SULFATE 4 GM/100 ML 100 ML IV ONE (01:00)
[2019-01-14] MEDS: IBUPROFEN 600 MG TAB PO SCH ×5 (01:45→23:46)
[2019-01-14] MEDS: ACCU-CHEK XX SCH (01:48)
[2019-01-14] MEDS: LACTATED RINGER'S 1,000 ML IV SCH ×2 (01:49→12:50)
[2019-01-14] MEDS: MAGNESIUM SULFATE 20 GM/500 ML 500 ML IV SCH ×3 (02:14→22:36)
[2019-01-14] MEDS: hydrALAzine 20 MG INJ IV PRN ×3 (03:58→20:48)
[2019-01-14] MEDS: INSULIN ASPART [NOVOLOG] 3 ML PEN SC SCH ×4 (08:05→21:00)
[2019-01-14] MEDS: FERROUS SULFATE (EC) 325 MG TAB PO SCH ×3 (08:53→20:48)
[2019-01-14] MEDS: SENNA/DOCUSATE NA (8.6MG/50MG) TAB PO SCH ×2 (08:53→21:12)
--- NOTE | 2019-01-14 12:14 | QN ---
Documentation Comment Patient's BP increased to severe range requiring IV magnesium sulfate. Patient has no complaint Afebrile VSS BP improved Will continue with IV magnesium sulfate Hgb improving EDDI ULLOA MD Jan 14, 2019 12:14
[2019-01-14] MEDS: FOLIC ACID 1 MG TAB PO SCH (12:49)
[2019-01-14] MEDS: SOD FERRIC GLUC COMPLX 125 MG in SOD CHLORIDE 0.9% 100 ML IVPB SCH (13:00)
--- NOTE | 2019-01-14 13:39 | CONS ---
Assessment/Plan Assessment/Plan Problems: (1) Insulin resistance syndrome Status: Chronic Comment: Patient's sugars remain in good control under the present circumstances without pharmaceutical therapy. Continue close observation (2) Iron deficiency anemia Status: Chronic Comment: Patient's blood counts are coming up. As near as I can tell from the computer record she has not received a blood transfusion. Continue with aggressive replacement of IV iron Qualifiers: Iron deficiency anemia type: unspecified iron deficiency Qualified Codes: D50.9 - Iron deficiency anemia, unspecified (3) Chorioamnionitis, delivered, current hospitalization Status: Acute Comment: As per Dr. Ulloa. Please note the patient's blood pressure lois up. There is no other obvious evidence of eclampsia however careful observation. As per C[employer] WR[employer]PER and perinatology Consultation Date/Type/Reason Admit Date/Time Jan 08, 2019 at 08:15 Initial Consult Date 01/11/19 Type of Consult Endocrinology Reason for Consultation Insulin resistance syndrome with gestational diabetes mellitus type 2 treated with insulin; severe iron deficiency anemia Requesting Provider: EDDI ULLOA MD Date/Time of Note DATE: 01/14/19 TIME: 13:36 24 HR Interval Summary Free Text/Dictation Patient reports that she did not receive a blood transfusion. She reports that she is feeling a little bit better. Denies headache chest pain nausea vomiting other neurologic symptoms Constitutional: no complaints Detailed Summary Respiratory: no complaints Cardiovascular: no complaints Gastrointestinal: no complaints Neurologic: no complaints Endocrine: no complaints Exam/Review of Systems Exam Vitals Vital Signs Date Temp Pulse Resp B/P (MAP) Pulse Ox O2 O2 Flow FiO2 Time Delivery Rate 01/14/19 89 18 138/78 Room Air 11:00 (98) 01/14/19 98.1 08:00 Intake and Output 01/13/19 01/13/19 01/14/19 1515:00 23:00 07:00 IntakeIntake Total 100 ml 375 ml BalanceBalance 100 ml 375 ml Exam No change in examination Results Result Diagram: 01/14/19 0716 01/13/19 2235 Results 24hrs Laboratory Tests Test 01/13/19 15:06 01/13/19 18:06 01/13/19 20:25 01/13/19 21:53 Bedside Glucose 105 98 100 94 Test 01/13/19 22:35 01/13/19 22:55 01/14/19 07:16 01/14/19 08:37 White Blood Count 14.6 H 12.5 H Red Blood Count 2.31 L 2.50 L Hemoglobin 6.3 *L 6.8 *L Hematocrit 19.3 L 20.8 L Mean Corpuscular 83.5 83.2 Volume Mean Corpuscular 27.3 L 27.2 L Hemoglobin Mean Corpuscular 32.6 32.7 Hemoglobin Concent Red Cell 14.3 14.1 Distribution Width Platelet Count 215 250 Mean Platelet Volume 9.7 10.4 Immature 10.300 H 16.300 H Granulocytes % Neutrophils % 68.1 Lymphocytes % 13.8 L Monocytes % 6.5 Eosinophils % 0.8 Basophils % 0.5 Nucleated Red Blood 1.1 H 2 H Cells % Immature 1.500 H 2.040 H Granulocytes # Neutrophils # 10.0 H Lymphocytes # 2.0 Monocytes # 1.0 H Eosinophils # 0.1 Basophils # 0.1 Nucleated Red Blood 0.2 H Cells # Sodium Level 138 Potassium Level 3.7 Chloride Level 108 Carbon Dioxide Level 27 Anion Gap 3 L Blood Urea Nitrogen 10 Creatinine 0.47 Est Glomerular > 60 Filtrat Rate mL/min Glucose Level 90 Uric Acid 3.8 Calcium Level 8.5 Total Bilirubin 0.3 Direct Bilirubin 0.00 Indirect Bilirubin 0.3 Aspartate Amino 24 Transf (AST/SGOT) Alanine 25 Aminotransferase (AL T/SGPT) Alkaline Phosphatase 110 Total Protein 6.0 L Albumin 2.9 L Globulin 3.10 Albumin/Globulin 0.93 Ratio Urine Color RED Urine Clarity CLOUDY A Urine pH 7.0 Urine Specific 1.006 [place] Urine Ketones NEGATIVE Urine Nitrite NEGATIVE Urine Bilirubin NEGATIVE Urine Urobilinogen NEGATIVE Urine Leukocyte 3+ H Esterase Urine Microscopic > 182 H RBC Urine Microscopic > 182 H WBC Urine Squamous FEW Epithelial Cells Urine Bacteria FEW A Urine Hemoglobin 3+ H Urine Glucose NEGATIVE Urine Total Protein 2+ H Segmented 60 Neutrophils % (Manual) Band Neutrophils % 10 H (Manual) Lymphocytes % 7 L (Manual) Monocytes % (Manual) 12 H Metamyelocytes % 6 H (manual) Myelocytes % 4 H (Manual) Promyelocytes % 1 H (Manual) Neutrophils # 7.7 H (Manual) Band Neutrophils # 1.2 H Lymphocytes (Manual) 0.8 Monocytes # (Manual) 1.5 H Metamyelocytes # 0.7 H Myelocytes # 0.5 H Promyelocytes # 0.1 H Platelet Estimate NORMAL Polychromasia 3+ Anisocytosis 3+ Microcytosis 3+ Ovalocytes 1+ Magnesium Level 4.6 H Bedside Glucose 118 Test 01/14/19 11:09 01/14/19 12:35 Bedside Glucose 129 142 Medications Medication Current Medications Ibuprofen (Motrin) 600 mg Q6 PO Last administered on 01/14/19at 12:49; Admin Dose 600 MG; Start 01/10/19 at 00:00 Acetaminophen (Tylenol Tab) 650 mg Q4H PRN PO .PAIN 1-5; Start 01/09/19 at 23:30 Acetaminophen/ Hydrocodone Bitart ([place] (5/325)) 1 tab Q4H PRN PO .PAIN 1-5; Start 01/09/19 at 23:30 Senna/Docusate Sodium (Senokot-S) 1 tab BID PO Last administered on 01/14/19at 08:53; Admin Dose 1 TAB; Start 01/10/19 at 09:00 Witch Ryanne/ Glycerin (Tucks Pads) 1 pad BEDSIDE MEDICATION PRN [place] .HEMORRHOID/EPISIOTOMY PAIN; Start 01/09/19 at 23:30 Benzocaine (Dermoplast [place]) 1 spray BEDSIDE MEDICATION PRN TOP .HEMMOR HOID/EPISIOTOMY PAIN; Start 01/09/19 at 23:30 Dibucaine (Nupercainal) 1 applic BEDSIDE MEDICATION PRN TOP .HEMMORHOID/EPISIOTOMY; Start 01/09/19 at 23:30 Oxytocin/Lactated Ringer's 500 ml @ 0 mls/hr ONCE PRN IV .VAGINAL BLEEDING; Start 01/09/19 at 23:30 Carboprost Tromethamine (Hemabate) 250 mcg ONCE PRN IM .VAGINAL BLEEDING; Start 01/09/19 at 23:30 Misoprostol (Cytotec) 1,000 mcg ONCE PRN [place] .VAGINAL BLEEDING; Start 01/09/19 at 23:30 Ferrous Sulfate (Ferrous Sulfate (Ec)) 325 mg TID PO Last administered on 01/14/19at 12:49; Admin Dose 325 MG; Start 01/10/19 at 21:00 Diagnostic Test (Pha) (Accu-Chek) 1 ea 02 XX ; Start 01/12/19 at 02:00 Insulin Aspart (Novolog Insulin Pen) NOVOLOG *MILD* ALGORITHM WITH MEALS BEDTIME SC Last administered on 01/14/19at 13:03; Admin Dose 1 UNIT; Start 01/11/19 at 18:05 Miscellaneous Information 1 ea NOTE XX ; Start 01/11/19 at 14:30 Glucose (Glutose) 22.5 gm Q15M PRN PO DECREASED GLUCOSE; Start 01/11/19 at 14:30 Dextrose (D50w Syringe) 25 ml Q15M PRN IV DECREASED GLUCOSE; Start 01/11/19 at 14:30 Dextrose (D50w Syringe) 50 ml Q15M PRN IV DECREASED GLUCOSE; Start 01/11/19 at 14:30 Glucagon (Glucagen) 1 mg Q15M PRN IM DECREASED GLUCOSE; Start 01/11/19 at 14:30 Glucose (Glutose) 15 gm Q15M PRN BUCCAL DECREASED GLUCOSE; Start 01/11/19 at 14:30 Diagnostic Test (Pha) (Accu-Chek) 1 ea 2 HOURS AFTER MEALS XX Last administered on 01/13/19at 15:00; Admin Dose 1 EA; Start 01/12/19 at 10:05 Diagnostic Test (Pha) (Accu-Chek) 1 ea AC MEALS XX Last administered on 01/13/19at 18:07; Admin Dose 1 EA; Start 01/12/19 at 11:20 Ferric Sodium Gluconate Complex 125 mg/Sodium Chloride 110 ml @ 100 mls/hr DAILY@1300 IVPB Last administered on 01/12/19at 13:29; Admin Dose 100 MLS/HR; Start 01/12/19 at 13:00; Stop 01/14/19 at 13:59 Folic Acid (Folic Acid) 1 mg DAILY PO Last administered on 01/14/19at 12:49; Admin Dose 1 MG; Start 01/12/19 at 17:30 Magnesium Sulfate 500 ml @ 50 mls/hr Q10H IV Last administered on 01/14/19at 12:55; Admin Dose 50 MLS/HR; Start 01/14/19 at 00:42 Hydralazine HCl (Apresoline) 10 mg Q15M PRN IV PRN SBP >160 Last administered on 01/14/19at 03:58; Admin Dose 10 MG; Start 01/14/19 at 01:30 Lactated Ringer's 1,000 ml @ 75 mls/hr [id number] IV Last administered on 01/14/19at 12:50; Admin Dose 75 MLS/HR; Start 01/14/19 at 02:00 Ferric Sodium Gluconate Complex 125 mg/Sodium Chloride 100 ml @ 100 mls/hr ONCE ONCE IVPB ; Start 01/14/19 at 17:00; Stop 01/14/19 at 17:59; Status UNPATRICK KEATING MD Jan 14, 2019 13:39
[2019-01-14] MEDS ORDERED: SOD FERRIC GLUC COMPLX 125 MG in SOD CHLORIDE 0.9% 100 ML IVPB ONE (17:00)
[2019-01-15] VITALS (13 sets, daily range): BP systolic 134–171; BP diastolic 74–91; PULSE 85–124; RESP 17–20
[2019-01-15] MEDS: LACTATED RINGER'S 1,000 ML IV SCH (01:49)
[2019-01-15] MEDS: ACCU-CHEK XX SCH ×6 (02:00→20:05)
[2019-01-15] MEDS ORDERED: SOD FERRIC GLUC COMPLX 125 MG in SOD CHLORIDE 0.9% 100 ML IVPB ONE (06:33)
[2019-01-15] MEDS: IBUPROFEN 600 MG TAB PO SCH ×3 (06:34→16:01)
[2019-01-15] MEDS: INSULIN ASPART [NOVOLOG] 3 ML PEN SC SCH ×4 (08:05→21:00)
[2019-01-15] MEDS ORDERED: LABETALOL 200 MG TAB PO SCH (09:00)
[2019-01-15] MEDS: NIFEdipine (XL) 30 MG TAB PO SCH ×2 (09:29→21:00)
[2019-01-15] MEDS: SENNA/DOCUSATE NA (8.6MG/50MG) TAB PO SCH ×2 (09:29→21:46)
[2019-01-15] MEDS: FOLIC ACID 1 MG TAB PO SCH (09:29)
[2019-01-15] MEDS: FERROUS SULFATE (EC) 325 MG TAB PO SCH ×3 (09:29→21:46)
--- NOTE | 2019-01-15 10:18 | CONS ---
Assessment/Plan Assessment/Plan Problems: (1) Insulin resistance syndrome Status: Chronic Comment: Doing well on observational therapy. At this time no pharmaceutical intervention indicated. I will sign off the case at this time and follow the patient as an outpatient (2) Iron deficiency anemia Status: Chronic Comment: Intravenous iron held due to the usage of IV magnesium. Patient's blood counts are coming up nicely further management as per obstetrics gynecology Qualifiers: Iron deficiency anemia type: unspecified iron deficiency Qualified Codes: D50.9 - Iron deficiency anemia, unspecified (3) Chorioamnionitis, delivered, current hospitalization Status: Acute Comment: As per Dr. Ulloa Consultation Date/Type/Reason Admit Date/Time Jan 08, 2019 at 08:15 Initial Consult Date 01/11/19 Type of Consult Endocrinology Reason for Consultation Fluid resistance syndrome with gestational diabetes treated with insulin; severe iron deficiency anemia; hypertension Requesting Provider: EDDI ULLOA MD Date/Time of Note DATE: 01/15/19 TIME: 10:16 24 HR Interval Summary Constitutional: no complaints Detailed Summary Endocrine: no complaints Exam/Review of Systems Exam Vitals Vital Signs Date Temp Pulse Resp B/P (MAP) Pulse Ox O2 O2 Flow FiO2 Time Delivery Rate 01/15/19 90 17 147/82 06:10 (103) 01/15/19 98.7 04:10 01/14/19 Room Air 20:48 Intake and Output 01/14/19 01/14/19 01/15/19 1515:00 23:00 07:00 IntakeIntake Total 895 ml 625 ml 500 ml OutputOutput Total 1600 ml 1800 ml 1500 ml BalanceBalance -705 ml -1175 ml -1000 ml Exam No change in exam Results Result Diagram: 01/15/19 0910 01/13/19 2235 Results 24hrs Laboratory Tests Test 01/14/19 11:09 01/14/19 12:35 01/14/19 13:11 01/14/19 16:02 Bedside Glucose 129 142 124 Magnesium Level 4.7 H Test 01/14/19 18:00 01/14/19 18:38 01/14/19 21:05 01/15/19 00:36 Bedside Glucose 122 138 Magnesium Level 5.4 *H 5.4 *H Test 01/15/19 06:40 01/15/19 08:12 01/15/19 09:10 Lab Scanned Report REFERENCE LAB Bedside Glucose 116 White Blood Count 12.2 H Red Blood Count 2.72 L Hemoglobin 7.4 L Hematocrit 22.7 L Mean Corpuscular 83.5 Volume Mean Corpuscular 27.2 L Hemoglobin Mean Corpuscular 32.6 Hemoglobin Concent Red Cell Distribution 14.6 H Width Platelet Count 287 Mean Platelet Volume 10.2 Immature Granulocytes 15.800 H % Neutrophils % 62.4 Segmented Neutrophils 68 % (Manual) Band Neutrophils % 11 H (Manual) Lymphocytes % 13.4 L Lymphocytes % 12 L (Manual) Monocytes % 6.9 Monocytes % (Manual) 5 Eosinophils % 1.1 Eosinophils % 1 (Manual) Basophils % 0.4 Metamyelocytes % 2 H (manual) Myelocytes % (Manual) 1 H Nucleated Red Blood 1 H Cells % Immature Granulocytes 1.940 H # Neutrophils # 7.6 H Neutrophils # 8.5 H (Manual) Band Neutrophils # 1.3 H Lymphocytes (Manual) 1.4 Lymphocytes # 1.6 Monocytes # 0.9 Monocytes # (Manual) 0.6 Eosinophils # 0.1 Basophils # 0.1 Metamyelocytes # 0.2 H Myelocytes # 0.1 H Nucleated Red Blood 0.1 H Cells # Platelet Estimate NORMAL Polychromasia 3+ Anisocytosis 3+ Microcytosis 3+ Medications Medication Current Medications Ibuprofen (Motrin) 600 mg Q6 PO Last administered on 01/15/19at 06:34; Admin Dose 600 MG; Start 01/10/19 at 00:00 Acetaminophen (Tylenol Tab) 650 mg Q4H PRN PO .PAIN 1-5; Start 01/09/19 at 23:30 Acetaminophen/ Hydrocodone Bitart ([place] (5/325)) 1 tab Q4H PRN PO .PAIN 1-5 Last administered on 01/15/19at 04:50; Admin Dose 1 TAB; Start 01/09/19 at 23:30 Senna/Docusate Sodium (Senokot-S) 1 tab BID PO Last administered on 01/15/19at 09:29; Admin Dose 1 TAB; Start 01/10/19 at 09:00 Witch [place]/ Glycerin (Tucks Pads) 1 pad BEDSIDE MEDICATION PRN [place] .HEMORRHOID/EPISIOTOMY PAIN; Start 01/09/19 at 23:30 Benzocaine (Dermoplast [place]) 1 spray BEDSIDE MEDICATION PRN TOP .HEMMORHOID/EPISIOTOMY PAIN; Start 01/09/19 at 23:30 Dibucaine (Nupercainal) 1 applic BEDSIDE MEDICATION PRN TOP .HEMMORHOID/EPISIOTOMY; Start 01/09/19 at 23:30 Oxytocin/Lactated Ringer's 500 ml @ 0 mls/hr ONCE PRN IV .VAGINAL BLEEDING; Start 01/09/19 at 23:30 Carboprost Tromethamine (Hemabate) 250 mcg ONCE PRN IM .VAGINAL BLEEDING; Start 01/09/19 at 23:30 Misoprostol (Cytotec) 1,000 mcg ONCE PRN [place] .VAGINAL BLEEDING; Start 01/09/19 at 23:30 Ferrous Sulfate (Ferrous Sulfate (Ec)) 325 mg TID PO Last administered on 01/15/19at 09:29; Admin Dose 325 MG; Start 01/10/19 at 21:00 Diagnostic Test (Pha) (Accu-Chek) 1 ea 02 XX ; Start 01/12/19 at 02:00 Insulin Aspart (Novolog Insulin Pen) NOVOLOG *MILD* ALGORITHM WITH MEALS BEDTIME SC Last administered on 01/14/19at 13:03; Admin Dose 1 UNIT; Start 01/11/19 at 18:05 Miscellaneous Information 1 ea NOTE XX ; Start 01/11/19 at 14:30 Glucose (Glutose) 22.5 gm Q15M PRN PO DECREASED GLUCOSE; Start 01/11/19 at 14:30 Dextrose (D50w Syringe) 25 ml Q15M PRN IV DECREASED GLUCOSE; Start 01/11/19 at 14:30 Dextrose (D50w Syringe) 50 ml Q15M PRN IV DECREASED GLUCOSE; Start 01/11/19 at 14:30 Glucagon (Glucagen) 1 mg Q15M PRN IM DECREASED GLUCOSE; Start 01/11/19 at 14:30 Glucose (Glutose) 15 gm Q15M PRN BUCCAL DECREASED GLUCOSE; Start 01/11/19 at 14:30 Diagnostic Test (Pha) (Accu-Chek) 1 ea 2 HOURS AFTER MEALS XX Last administered on 01/13/19at 15:00; Admin Dose 1 EA; Start 01/12/19 at 10:05 Diagnostic Test (Pha) (Accu-Chek) 1 ea AC MEALS XX Last administered on 01/13/19 18:07; Admin Dose 1 EA; Start 01/12/19 at 11:20 Folic Acid (Folic Acid) 1 mg DAILY PO Last administered on 01/15/19 09:29; Admin Dose 1 MG; Start 01/12/19 at 17:30 Magnesium Sulfate 500 ml @ 50 mls/hr Q10H IV Last administered on 01/14/19 22:36; Admin Dose 50 MLS/HR; Start 01/14/19 at 00:42 Hydralazine HCl (Apresoline) 10 mg Q15M PRN IV PRN SBP >160 Last administered on 01/14/19 20:48; Admin Dose 10 MG; Start 01/14/19 at 01:30 Lactated Ringer's 1,000 ml @ 75 mls/hr [id number] IV Last administered on 01/15/19 01:49; Admin Dose 75 MLS/HR; Start 01/14/19 at 02:00 Nifedipine (Procardia Xl) 30 mg BID PO Last administered on 01/15/19 09:29; Admin Dose 30 MG; Start 01/15/19 at 09:00 PATRICK MCCONNELL MD Jan 15, 2019 10:17
[2019-01-15] MEDS ORDERED: NIFEdipine (XL) 30 MG TAB PO ONE (19:30)
[2019-01-15] MEDS ORDERED: NIFEdipine 10 MG CAP PO ONE (21:30)
[2019-01-16] MEDS: IBUPROFEN 600 MG TAB PO SCH ×5 (01:21→23:44)
[2019-01-16] MEDS: ACCU-CHEK XX SCH ×7 (02:00→20:05)
[2019-01-16 04:00] VITALS: BP 155/90; PULSE 113; RESP 20
[2019-01-16 08:00] VITALS: BP 161/94; PULSE 101; RESP 18
[2019-01-16] MEDS: INSULIN ASPART [NOVOLOG] 3 ML PEN SC SCH ×4 (08:05→21:00)
[2019-01-16] MEDS: FERROUS SULFATE (EC) 325 MG TAB PO SCH ×3 (08:19→20:36)
[2019-01-16] MEDS: FOLIC ACID 1 MG TAB PO SCH (08:19)
[2019-01-16] MEDS: SENNA/DOCUSATE NA (8.6MG/50MG) TAB PO SCH ×2 (08:20→20:36)
[2019-01-16 09:00] VITALS: BP 151/91; PULSE 89; RESP 17
[2019-01-16] MEDS: NIFEdipine (XL) 30 MG TAB PO SCH ×2 (09:00→20:36)
[2019-01-16] MEDS ORDERED: NIFEdipine (XL) 60 MG TAB PO ONE (09:00)
[2019-01-16 11:32] VITALS: BP 144/86; PULSE 93; RESP 18
--- NOTE | 2019-01-16 14:32 | PN ---
Date/Time of Note Date/Time of Note DATE: 01/16/19 TIME: 14:25 OB Subjective Subjective Subjective Late entry note. Patient seen on 01/15/2019 PPD# 6 Patient is doing well. She denies nausea, vomiting, shortness of breath, chest pain, headache. She has been ambulating without difficulty, tolerating regular diet. Pain is well controlled on current medications OB Objective Objective Objective General: AAO X 3, comfortable, NAD, appropriate mood and affect. ABD: +BS. Soft, non-tender. Uterus 2 cm below umbilicus Flank: No CVA tenderness (B/L) LE: Mild edema. No clubbing, cyanosis, thigh or calf tenderness (B/L). Homans 'sign is negative OB Assessment/Plan Other plan: 43 years old 1 para 1001 with preeclampsia s/p normal vaginal delivery. PPD#6. She again had elevated blood pressure yesterday which required magnesium sulfate. Her blood pressure currently are not in severe range. She denies symptom of severe features. She is currently on Procardia 30 mg XL. Observe her closely. Baby is doing well, at bed side. She is bonding well. Continue care Addendum: Patient seen at 20:00 again. Blood pressure pressure was 161/92. Procardia 20 mg p.o. given. Follow her closely. I discussed with patient will increase Procardia 30 mg to 60 mg XL tomorrow morning and observe her closely. Patient would like to be discharged home tomorrow. If blood pressure are stable on Procardia 60 mg XL, she may discharge home. I did recommend, buy blood pressure machine. The nurse will educate her how to check her blood pressure. I anticipate she need Procardia 60 mg daily in the next few days and then Procardia decrease to 30 mg XL if needed. She expressed understanding, all of her questions answered. ESTEE HERNANDEZ Jan 16, 2019 14:32
[2019-01-16 16:00] VITALS: BP 156/80; PULSE 88; RESP 18
--- NOTE | 2019-01-16 16:30 | DS ---
Date/Time of Note Date/Time of Note DATE: 01/16/19 TIME: 16:21 Obstetrical Discharge Record Final Diagnosis Final Diagnosis: Term delivered Other Final Diagnosis 43 years old 1 para 1001 with preeclampsia s/p normal vaginal delivery. PPD#7. course was unremarkable except for elevated blood pressure which required treatment with magnesium sulfate on 01/14/2019. She currently denies symptom of severe features of preeclampsia. She was on Procardia 30 mg XL yesterday which increased to 60 mg XL daily since this morning due to uncontrolled blood pressure. Patient's brought blood pressure machine pressure or recommendation. The nurse educate her and her how to check her blood pressure. She discharged home on Procardia 60 mg XL daily. She will check her blood pressure 3 times daily and will have follow-up with her primary OB in 3-4 days. Again sign and symptom of preeclampsia with severe features discussed in detail with patient. She expressed understanding. All of her questions answered. I strongly recommend come to emergency department with any above symptoms or any concern. - Baby is doing well, at bed side. She is bonding well - Contraception methods with R/B/A/FR discussed - Continue care - Discharge home - Rx and instruction given - Follow up in 3 days and 6 weeks with primary OB Condition on Discharge Physical Assessment Last Vitals: VS - Last 72 Hours, by Label Date Temp Pulse Resp B/P (MAP) Pulse Ox O2 O2 Flow FiO2 Time Delivery Rate 01/16/19 93 18 144/86 Room Air 11:32 (105) 01/16/19 89 17 151/91 Room Air 09:00 (111) 01/16/19 97.6 101 18 161/94 Room Air 08:00 (116) 01/16/19 97.4 113 20 155/90 Room Air 04:00 (111) 01/15/19 99.2 115 19 145/85 Room Air 23:00 (105) 01/15/19 99.4 124 20 157/88 Room Air 20:30 (111) 01/15/19 102 171/91 18:39 (117) 01/15/19 98.9 107 20 163/85 Room Air 16:00 (111) 01/15/19 97.6 102 18 154/81 Room Air 12:00 (105) 01/15/19 98.4 90 20 159/91 Room Air 08:00 (113) 01/15/19 90 17 147/82 06:10 (103) 01/15/19 97 17 157/87 05:10 (110) 01/15/19 98.7 95 17 146/74 04:10 (98) 01/15/19 87 18 155/78 03:10 (103) 01/15/19 85 18 152/77 02:10 (102) 01/15/19 89 17 134/82 01:10 (99) 01/15/19 92 18 148/77 00:10 (100) 01/14/19 95 18 157/84 23:10 (108) 01/14/19 93 19 142/80 22:10 (100) 01/14/19 94 18 152/82 21:10 (105) 01/14/19 98.9 104 18 167/89 Room Air 20:48 (115) 01/14/19 97.9 97 18 155/86 Room Air 18:00 (109) 01/14/19 94 18 151/85 Room Air 17:00 (107) 01/14/19 94 18 158/68 Room Air 16:00 (98) 01/14/19 97 155/92 15:15 (113) 01/14/19 102 182/91 14:56 (121) 01/14/19 96 150/80 Room Air 13:00 (103) 01/14/19 18 145/80 Room Air 12:00 (101) 01/14/19 89 18 138/78 Room Air 11:00 (98) 01/14/19 89 18 140/78 Room Air 10:00 (98) 01/14/19 99 18 150/78 Room Air 09:00 (102) 01/14/19 98.1 107 18 150/85 Room Air 08:00 (106) 01/14/19 99 18 153/79 Room Air 06:15 (103) 01/14/19 107 20 159/77 Room Air 05:15 (104) 01/14/19 107 16 142/71 Room Air 04:15 (94) 01/14/19 109 20 138/67 Room Air 04:10 (90) 01/14/19 97.8 98 18 140/75 Room Air 04:06 (96) 01/14/19 82 20 184/82 Room Air 04:00 (116) 01/14/19 93 20 173/91 Room Air 03:00 (118) 01/14/19 80 18 182/86 Room Air 02:00 (118) 01/14/19 98.2 96 20 175/87 Room Air 00:00 (116) 01/13/19 80 18 177/87 Room Air 23:30 (117) 01/13/19 78 20 174/87 Room Air 23:00 (116) 01/13/19 80 18 170/83 Room Air 22:45 (112) 01/13/19 73 18 181/93 Room Air 22:30 (122) 01/13/19 80 20 192/96 Room Air 22:15 (128) 01/13/19 82 18 186/91 Room Air 22:00 (122) 01/13/19 80 20 160/87 21:00 (111) 01/13/19 97.9 85 20 155/80 Room Air 20:00 (105) Vital Signs Date Temp Pulse Resp B/P (MAP) Pulse Ox O2 O2 Flow FiO2 Time Delivery Rate 01/16/19 93 18 144/86 Room Air 11:32 (105) 01/16/19 97.6 08:00 Voiding: Yes Bowel Movement: Yes Breast: Soft, non-tender Fundus: Firm Calf Tenderness: No Patient Condition: Stable ESTEE HERNANDEZ Jan 16, 2019 16:30
[2019-01-16 20:45] VITALS: BP 157/94; PULSE 111; RESP 18
--- NOTE | 2019-01-16 21:00 | QN ---
Documentation Comment 43 years old 1 para 1001 with preeclampsia s/p normal vaginal delivery. PPD#7. course was unremarkable except for elevated blood pressure which required treatment with magnesium sulfate on 01/14/2019. She currently denies symptom of severe features of preeclampsia. She was on Procardia 30 mg XL yesterday which increased to 60 mg XL daily since this morning due to uncontrolled blood pressure. Patient discussed with Dr. Jones who kindly accepted to visit and follow the patient. ESTEE HERNANDEZ Jan 16, 2019 21:00
[2019-01-16] MEDS ORDERED: METOPROLOL (XL) 25 MG TAB PO ONE (21:30)
[2019-01-17] MEDS: ACCU-CHEK XX SCH ×5 (02:00→13:50)
[2019-01-17 06:00] VITALS: BP 158/93; PULSE 110; RESP 19
[2019-01-17] MEDS: IBUPROFEN 600 MG TAB PO SCH ×3 (06:00→18:00)
[2019-01-17] MEDS: INSULIN ASPART [NOVOLOG] 3 ML PEN SC SCH ×2 (08:05→11:50)
[2019-01-17 08:30] VITALS: BP 159/86; PULSE 103; RESP 18
[2019-01-17] MEDS: FERROUS SULFATE (EC) 325 MG TAB PO SCH ×2 (08:50→14:19)
[2019-01-17] MEDS: SENNA/DOCUSATE NA (8.6MG/50MG) TAB PO SCH (08:50)
[2019-01-17] MEDS: NIFEdipine (XL) 30 MG TAB PO SCH (08:51)
[2019-01-17] MEDS ORDERED: METOPROLOL (XL) 25 MG TAB PO SCH (09:00)
[2019-01-17] MEDS: FOLIC ACID 1 MG TAB PO SCH (09:35)
[2019-01-17 10:05] VITALS: BP 140/80; PULSE 95; RESP 18
[2019-01-17] MEDS ORDERED: POTASSIUM CHLORIDE (SR) 20 MEQ TAB PO STA (12:39)
--- NOTE | 2019-01-17 12:46 | CONS ---
Assessment/Plan Assessment/Plan Problems: (1) Pre-eclampsia Status: Acute Comment: Patient is now Qualifiers: Trimester: third trimester Qualified Codes: O14.93 - Unspecified pre- eclampsia, third trimester (2) Pre-eclampsia in period Status: Acute Comment: Patient is day 6 and had rise in blood pressure. Blood pressure medications have been added and the patient is stable. Home blood pressure kit. Obstetrics and gynecology feels comfortable with the patient being discharged. Please note perinatology signed off the case at (3) Insulin resistance syndrome Status: Chronic Comment: Stable on no medication (4) Iron deficiency anemia Status: Chronic Comment: Resolving nicely with supplementation Qualifiers: Iron deficiency anemia type: unspecified iron deficiency Qualified Codes: D50.9 - Iron deficiency anemia, unspecified Consultation Date/Type/Reason Admit Date/Time Jan 08, 2019 at 08:15 Initial Consult Date 01/11/19 Type of Consult Endocrinology Reason for Consultation Insulin resistance syndrome with gestational diabetes; iron deficiency anemia; (preeclampsia and eclampsia with hypertension as per obstetrics gynecology notes) Requesting Provider: EDDI ULLOA MD Date/Time of Note DATE: 01/17/19 TIME: 12:42 24 HR Interval Summary Free Text/Dictation Patient reports she is anxious to go home. No headaches no nausea no vomiting negative neurologic review of systems Constitutional: no complaints Detailed Summary Respiratory: no complaints Cardiovascular: no complaints Gastrointestinal: no complaints Genitourinary: no complaints Exam/Review of Systems Exam Vitals Vital Signs Date Temp Pulse Resp B/P (MAP) Pulse Ox O2 O2 Flow FiO2 Time Delivery Rate 01/17/19 98.4 103 18 159/86 Room Air 08:30 (110) Constitutional: alert, oriented Neck: supple, non-tender Respiratory: clear to auscultation, normal air movement Cardiovascular: regular rate and rhythm, nl pulses Gastrointestinal: soft, nl liver, spleen, non-tender Results Result Diagram: 01/17/19 0615 01/17/19 0615 Results 24hrs Laboratory Tests Test 01/16/19 18:12 01/17/19 05:32 01/17/19 06:00 01/17/19 06:15 Bedside Glucose 106 101 Urine Color YELLOW Urine Clarity CLOUDY A Urine pH 7.0 Urine Specific [place] 1.009 Urine Ketones 1+ H Urine Nitrite NEGATIVE Urine Bilirubin NEGATIVE Urine Urobilinogen NEGATIVE Urine Leukocyte Esterase 3+ H Urine Microscopic RBC 142 H Urine Microscopic WBC > 182 H Urine Squamous FEW Epithelial Cells Urine Hemoglobin 3+ H Urine Glucose NEGATIVE Urine Total Protein 1+ H White Blood Count 11.4 H Red Blood Count 2.95 L Hemoglobin 8.1 L Hematocrit 24.7 L Mean Corpuscular Volume 83.7 Mean Corpuscular 27.5 L Hemoglobin Mean Corpuscular 32.8 Hemoglobin Concent Red Cell Distribution 15.0 H Width Platelet Count 335 Mean Platelet Volume 9.9 Immature Granulocytes % 9.400 H Neutrophils % 65.7 Lymphocytes % 16.4 Monocytes % 6.4 Eosinophils % 1.4 Basophils % 0.7 Nucleated Red Blood 0.3 H Cells % Immature Granulocytes # 1.070 H Neutrophils # 7.5 Lymphocytes # 1.9 Monocytes # 0.7 Eosinophils # 0.2 Basophils # 0.1 Nucleated Red Blood 0.0 Cells # Sodium Level 140 Potassium Level 3.2 L Chloride Level 102 Carbon Dioxide Level 28 Anion Gap 10 Blood Urea Nitrogen 8 Creatinine 0.43 L Est Glomerular Filtrat > 60 Rate mL/min Glucose Level 93 Calcium Level 8.6 Thyroid Stimulating 1.970 Hormone (TSH) Test 01/17/19 08:49 Bedside Glucose 117 Medications Medication Current Medications Ibuprofen (Motrin) 600 mg Q6 PO Last administered on 01/17/19at 06:00; Admin Dose 600 MG; Start 01/10/19 at 00:00 Acetaminophen (Tylenol Tab) 650 mg Q4H PRN PO .PAIN 1-5; Start 01/09/19 at 23:30 Acetaminophen/ Hydrocodone Bitart ([place] (5/325)) 1 tab Q4H PRN PO .PAIN 1-5 Last administered on 01/15/19at 04:50; Admin Dose 1 TAB; Start 01/09/19 at 23:30 Senna/Docusate Sodium (Senokot-S) 1 tab BID PO Last administered on 01/17/19 08:50; Admin Dose 1 TAB; Start 01/10/19 at 09:00 Witch [place]/ Glycerin (Tucks Pads) 1 pad BEDSIDE MEDICATION PRN [place] .HEMORRHOID/EPISIOTOMY PAIN Last administered on 01/17/19 08:51; Admin Dose 1 PAD; Start 01/09/19 at 23:30 Benzocaine (Dermoplast [place]) 1 spray BEDSIDE MEDICATION PRN [place] .HEMMORHOID/EPISIOTOMY PAIN Last administered on 01/17/19at 08:52; Admin Dose 1 SPRAY; Start 01/09/19 at 23:30 Dibucaine (Nupercainal) 1 applic BEDSIDE MEDICATION PRN TOP .HEMMORHOID/EPISIOTOMY; Start 01/09/19 at 23:30 Oxytocin/Lactated Ringer's 500 ml @ 0 mls/hr ONCE PRN IV .VAGINAL BLEEDING; Start 01/09/19 at 23:30 Carboprost Tromethamine (Hemabate) 250 mcg ONCE PRN IM .VAGINAL BLEEDING; Start 01/09/19 at 23:30 Misoprostol (Cytotec) 1,000 mcg ONCE PRN [place] .VAGINAL BLEEDING; Start 01/09/19 at 23:30 Ferrous Sulfate (Ferrous Sulfate (Ec)) 325 mg TID PO Last administered on 01/17/19at 08:50; Admin Dose 325 MG; Start 01/10/19 at 21:00; Stop 02/09/19 at 20:59 Diagnostic Test (Pha) (Accu-Chek) 1 ea 02 XX ; Start 01/12/19 at 02:00 Insulin Aspart (Novolog Insulin Pen) NOVOLOG *MILD* ALGORITHM WITH MEALS BEDTIME SC Last administered on 01/14/19at 13:03; Admin Dose 1 UNIT; Start 01/11/19 at 18:05 Miscellaneous Information 1 ea NOTE XX ; Start 01/11/19 at 14:30 Glucose (Glutose) 22.5 gm Q15M PRN PO DECREASED GLUCOSE; Start 01/11/19 at 14:30 Dextrose (D50w Syringe) 25 ml Q15M PRN IV DECREASED GLUCOSE; Start 01/11/19 at 14:30 Dextrose (D50w Syringe) 50 ml Q15M PRN IV DECREASED GLUCOSE; Start 01/11/19 at 14:30 Glucagon (Glucagen) 1 mg Q15M PRN IM DECREASED GLUCOSE; Start 01/11/19 at 14:30 Glucose (Glutose) 15 gm Q15M PRN BUCCAL DECREASED GLUCOSE; Start 01/11/19 at 14:30 Diagnostic Test (Pha) (Accu-Chek) 1 ea 2 HOURS AFTER MEALS XX Last administered on 01/13/19at 15:00; Admin Dose 1 EA; Start 01/12/19 at 10:05 Diagnostic Test (Pha) (Accu-Chek) 1 ea AC MEALS XX Last administered on 01/13/19at 18:07; Admin Dose 1 EA; Start 01/12/19 at 11:20 Folic Acid (Folic Acid) 1 mg DAILY PO Last administered on 01/17/19at 09:35; Admin Dose 1 MG; Start 01/12/19 at 17:30 Hydralazine HCl (Apresoline) 10 mg Q15M PRN IV PRN SBP >160 Last administered on 01/14/19at 20:48; Admin Dose 10 MG; Start 01/14/19 at 01:30 Nifedipine (Procardia Xl) 30 mg BID PO Last administered on 01/17/19at 08:51; Admin Dose 30 MG; Start 01/15/19 at 09:00 Potassium Chloride (Klor-Con 20) 40 meq ONCE STAT PO ; Start 01/17/19 at 12:39; Stop 01/17/19 at 12:40; Status UNV Metoprolol Succinate (Toprol Xl) 50 mg DAILY PO ; Start 01/18/19 at 09:00; Status UNV PATRICK MCCONNELL MD Jan 17, 2019 12:45
--- NOTE | 2019-01-17 15:09 | PN ---
Date/Time of Note Date/Time of Note DATE: 01/17/19 TIME: 15:02 OB Subjective Subjective Subjective Denies any headache, blurred vision, epigastric pain or right upper quadrant p ain. Reports decreased vaginal bleeding. OB Objective Objective Objective GA: A&O, NAD Abdomen: Soft, non tender, fundus firm, the uterus is enlarged at the size of 28 weeks with firm mass on the fundus likely fibroid, Extremities: No calf tenderness, no click no edema Lungs: Clear to auscultation bilaterally CV RRR VS - Last 72 Hours, by Label Date Temp Pulse Resp B/P (MAP) Pulse Ox O2 O2 Flow FiO2 Time Delivery Rate 01/17/19 95 18 140/80 Room Air 10:05 (100) 01/17/19 98.4 103 18 159/86 Room Air 08:30 (110) 01/17/19 98.4 110 19 158/93 Room Air 06:00 (114) 01/16/19 98.2 111 18 157/94 Room Air 20:45 (115) 01/16/19 98.2 88 18 156/80 Room Air 16:00 (105) 01/16/19 93 18 144/86 Room Air 11:32 (105) 01/16/19 89 17 151/91 Room Air 09:00 (111) 01/16/19 97.6 101 18 161/94 Room Air 08:00 (116) 01/16/19 97.4 113 20 155/90 Room Air 04:00 (111) 01/15/19 99.2 115 19 145/85 Room Air 23:00 (105) 01/15/19 99.4 124 20 157/88 Room Air 20:30 (111) 01/15/19 102 171/91 18:39 (117) 01/15/19 98.9 107 20 163/85 Room Air 16:00 (111) 01/15/19 97.6 102 18 154/81 Room Air 12:00 (105) 01/15/19 98.4 90 20 159/91 Room Air 08:00 (113) 01/15/19 90 17 147/82 06:10 (103) 01/15/19 97 17 157/87 05:10 (110) 01/15/19 98.7 95 17 146/74 04:10 (98) 01/15/19 87 18 155/78 03:10 (103) 01/15/19 85 18 152/77 02:10 (102) 01/15/19 89 17 134/82 01:10 (99) 01/15/19 92 18 148/77 00:10 (100) 01/14/19 95 18 157/84 23:10 (108) 01/14/19 93 19 142/80 22:10 (100) 01/14/19 94 18 152/82 21:10 (105) 01/14/19 98.9 104 18 167/89 Room Air 20:48 (115) 01/14/19 97.9 97 18 155/86 Room Air 18:00 (109) 01/14/19 94 18 151/85 Room Air 17:00 (107) 01/14/19 94 18 158/68 Room Air 16:00 (98) 01/14/19 97 155/92 15:15 (113) Laboratory Tests Test 01/16/19 18:12 01/17/19 05:32 01/17/19 06:00 01/17/19 06:15 Bedside Glucose 106 101 Urine Color YELLOW Urine Clarity CLOUDY A Urine pH 7.0 Urine Specific [place] 1.009 Urine Ketones 1+ H Urine Nitrite NEGATIVE Urine Bilirubin NEGATIVE Urine Urobilinogen NEGATIVE Urine Leukocyte Esterase 3+ H Urine Microscopic RBC 142 H Urine Microscopic WBC > 182 H Urine Squamous FEW Epithelial Cells Urine Hemoglobin 3+ H Urine Glucose NEGATIVE Urine Total Protein 1+ H White Blood Count 11.4 H Red Blood Count 2.95 L Hemoglobin 8.1 L Hematocrit 24.7 L Mean Corpuscular Volume 83.7 Mean Corpuscular 27.5 L Hemoglobin Mean Corpuscular 32.8 Hemoglobin Concent Red Cell Distribution 15.0 H Width Platelet Count 335 Mean Platelet Volume 9.9 Immature Granulocytes % 9.400 H Neutrophils % 65.7 Lymphocytes % 16.4 Monocytes % 6.4 Eosinophils % 1.4 Basophils % 0.7 Nucleated Red Blood 0.3 H Cells % Immature Granulocytes # 1.070 H Neutrophils # 7.5 Lymphocytes # 1.9 Monocytes # 0.7 Eosinophils # 0.2 Basophils # 0.1 Nucleated Red Blood 0.0 Cells # Sodium Level 140 Potassium Level 3.2 L Chloride Level 102 Carbon Dioxide Level 28 Anion Gap 10 Blood Urea Nitrogen 8 Creatinine 0.43 L Est Glomerular Filtrat > 60 Rate mL/min Glucose Level 93 Calcium Level 8.6 Thyroid Stimulating 1.970 Hormone (TSH) Test 01/17/19 08:49 01/17/19 12:43 Bedside Glucose 117 93 OB Assessment/Plan Other Assessment: Status post preeclampsia status post magnesium Blood pressure currently controlled with changing the dose to nifedipine exten ded release 60 mg as well as metoprolol Patient is asymptomatic. She has a blood pressure machine She know how to check the patient's blood pressure at home and discussed regarding follow-up after discharge from the hospital within 3 days with her primary care physician and OB provider Signs and symptoms of preeclampsia explained again to the patient including headache, blurred vision, epigastric pain or right upper quadrant pain. Croatian interpretation used for interpretation. Patient verbalized understanding. All questions were answered to the patient's best satisfaction Uterus enlarged, appears to have a large fundal fibroid. Patient reports history of fibroid. Recommended to have a pelvic ultrasound prior to discharge home. Patient understands the need to have a follow-up after discharge at 6 weeks as well as for follow-up of management of fibroid with her primary [employer] TECH[employer]IC[facility] Currently asymptomatic All questions were answered VANITA RAMIREZ MD Jan 17, 2019 15:09
[2019-01-17 17:30] VITALS: BP 140/82; PULSE 92; RESP 18
[2019-01-18] MEDS ORDERED: METOPROLOL (XL) 50 MG TAB PO SCH (09:00)
--- NOTE | 2019-01-18 18:56 | DELSUM ---
Delivery Summary A-C Datetime Report Generated by CPN: 01/18/2019 18:56 DELIVERY PERSONNEL Animal Shelter Clerk: Claudia Diggs MATERNAL INFORMATION Delivery Anesthesia: Epidural Medications in Delivery: LR W/ 30 UNITS pitocin Delivery QBL (ml): 1200 Placenta Cultured: Yes Maternal Complications: Hemorrhage Other Maternal Complications: Type 2 DM; Chronic HTN; AMA LABOR SUMMARY EDC: 01/15/2019 00:00 No. Babies in Womb: 1 Attempted: No Labor Anesthesia: Epidural LABOR INFORMATION Reason for Induction: Gest. HTN/PreEclam/Eclamp; Maternal Diabetes Onset of Labor: 01/08/2019 10:33 Complete Dilatation: 01/09/2019 18:41 Cervical Ripening Agents: Cytotec @ Oxytocin: Induction Group B Beta Strep: Negative Antibiotics # of Doses: 0 Steroids Given: None Reason Steroids Not Administered: Not Applicable MEMBRANES Membranes Rupture Method: Spontaneous Rupture of Membranes: 01/08/2019 23:15 Length of Rupture (hr): 20.63 Amniotic Fluid Color: Clear Amniotic Fluid Amount: Small Amniotic Fluid Odor: None STAGES OF LABOR Stage 1 hr: 32 Stage 1 min: 8 Stage 2 hr: 1 Stage 2 min: 12 Stage 3 hr: 0 Stage 3 min: 10 Total Time in Labor hr: 33 Total Time in Labor min: 30 VAGINAL DELIVERY Episiotomy: None Laceration Extension: Second Degree Laceration Type: Perineal Laceration Repair: Yes Initial Vag Sponge Count: 10 Final Vag Sponge Count: 10+10 Initial Vag Sharps Count: 1 Final Vag Sharps Count: 3 Sponge Count Correct: Yes; Vaginal Sweep Performed Sharps Count Correct: Yes (Annotations: Data stored by N on behalf of user) BABY A INFORMATION Delivery Date/Time: 01/09/2019 19:53 Method of Delivery: Vaginal Born in Route : No : N/A Forceps: N/A Vacuum Extraction: N/A Shoulder Dystocia : N/A SHOULDER DYSTOCIA BABY A Infant Delivery Date/Time: 01/09/2019 19:53 PRESENTATION/POSITION BABY A Presentation: Cephalic Cephalic Presentation: Vertex Vertex Position: Left Occipital Posterior Breech Presentation: N/A PLACENTA INFORMATION BABY A Placenta Delivery Time : 01/09/2019 20:03 Placenta Method of Delivery: Spontaneous Placenta Status: Delivered SCORES BABY A Heart Rate 1 min: >100 bpm Resp Effort 1 min: Good Cry Reflex Irritability 1 min: Cough/Sneeze/Pulls Away Muscle Tone 1 min: Active Motion Color 1 min: Body [place], Extremit Blue Resuscitation Effort 1 min: Tactile Stimulation SCORE 1 MIN: 9 Heart Rate 5 min: >100 bpm Resp Effort 5 min: Good Cry Reflex Irritability 5 min: Cough/Sneeze/Pulls Away Muscle Tone 5 min: Active Motion Color 5 min: Body [place], Extremit Blue Resuscitation Effort 5 min: Tactile Stimulation SCORE 5 MIN: 9 INFANT INFORMATION BABY A Gestational Age at Delivery: 39.0 Gestational Status: Full Term- 39- 40.6 Weeks Outcome : Liveborn Condition : Stable Sex: Male IDENTIFICATION/MEDS BABY A ID Band Number: [id number] ID Band Location: Right Leg; Left Arm Sensor Applied: Yes Sensor Number: [id number] Sensor Location : Cord Clamp Vitamin K Given : Not Given Erythromycin Given: Not Given WEIGHT/LENGTH BABY A Infant Birthweight (gm): 3345 Weight (lb): 7 Infant Weight (oz): 6 Length (in): 21.00 Length (cm): 53.34 CORD INFORMATION BABY A No. Cord Vessels: 3 Nuchal Cord : N/A Cord Blood Taken: Yes Suction: Mouth; Nose ASSESSMENT BABY A Complications: None Infant Complications- Other: SENT TO NURSERY DUE TO PT CONDITION. Physical Findings at Delivery: Within Normal Limits Respirations: Appears Normal Flooring Salesperson/ALS Called : No Infant Care By: LAURO Transferred To: Nursery
== END 2019-01-17 18:56 | disposition home or self-care (01) | DRG 768 ==
LOC: L-D 08:15 → PP1 01-10 15:05 → UNDODISIN 01-15 18:52
PROVIDERS: ADMIT Obstetrics & Gynecology; ATTEND Obstetrics & Gynecology
PROC: 0W3R7ZZ Control Bleeding in Genitourinary Tract, Via Natural or Artificial Opening (ICD-10-PCS; 2019-01-08)
PROC: 0KQM0ZZ Repair Perineum Muscle, Open Approach (ICD-10-PCS; 2019-01-08)
PROC: 3E033VJ Introduction of Other Hormone into Peripheral Vein, Percutaneous Approach (ICD-10-PCS; 2019-01-08)
PROC: 10E0XZZ Delivery of Products of Conception, External Approach (ICD-10-PCS; principal; 2019-01-08 08:00)
DX: O14.93 Unspecified pre-eclampsia, third trimester (principal); Z37.0 Single live birth; O41.1230 Chorioamnionitis, third trimester, not applicable or unspecified; O24.419 Gestational diabetes mellitus in pregnancy, unspecified control; O75.89 Other specified complications of labor and delivery; Z3A.39 39 weeks gestation of pregnancy; O99.283 Endocrine, nutritional and metabolic diseases complicating pregnancy, third trimester; E88.81 Metabolic syndrome and other insulin resistance; O99.013 Anemia complicating pregnancy, third trimester; D50.9 Iron deficiency anemia, unspecified; O62.2 Other uterine inertia; O90.1 Disruption of perineal obstetric wound
CPT/HCPCS: 76815; 76856; 80048; 80053; 81001; 82728; 82962; 83540; 83735; 84443; 84560; 85025; 85384; 85610; 85730; 86592; 86803; 86850; 86870; 86885; 86900; 86901; 86920; 87070; 87086; 88307; 90686; 99464; J0360; J1200; J1815; J2543; J2590; J2790; J2916; J3010; J3475; J7120; J7121